=== PATIENT | female | born 1975 | race Caucasian/White ===

== ENCOUNTER 2021-07-24 20:43 | Emergency (ER) | payer OTHER, SELFPAY ==
[2021-07-24] VITALS (9 sets, daily range): BP systolic 106–139; BP diastolic 61–82; PULSE 73–113; RESP 15–31; TEMP 37.1–37.3; O2SAT 96–100; BMI 33.9
--- NOTE | 2021-07-24 21:25 | DI.CT.S_ITS ---
PROCEDURE: CT ABDOMEN PELVIS W CON INDICATIONS: Left-sided abdominal pain TECHNIQUE: After the administration of intravenous contrast, axial sections acquired from the lung bases to the pubic symphysis. Coronal and sagittal reformats were performed. For radiation dose reduction, the following was used: automated exposure control, adjustment of mA and/or kV according to patient size. COMPARISON: None. FINDINGS: Image quality: Excellent. Lung bases: Unremarkable. Heart: No significant findings. ABDOMEN: Liver: Unremarkable. Gallbladder: Demonstrates multiple calculi within its lumen Biliary ducts: Unremarkable. Pancreas: Unremarkable. Spleen: Unremarkable. Adrenal Glands: Unremarkable. Kidneys and Ureters: Right kidney is within normal limits. Mild left renal enlargement. Multifocal wedge-shaped hypodense regions within the left renal parenchyma. Mild left perinephric fat stranding. Stomach and Bowel: Stomach, small bowel loops, and colon are unremarkable. Appendix not seen. No evidence of appendicitis. Peritoneum: No abnormal intraperitoneal fluid. No free air. Ventral Wall: No hernias. Abdominal Nodes: No retroperitoneal or mesenteric adenopathy by size criteria. Vessels: Aorta and inferior vena cava are normal in size. PELVIS: Pelvic Organs: Unremarkable. Bladder: Unremarkable. Pelvic Nodes: No enlarged lymph nodes. Miscellaneous: No hernias are seen. Bones: Unremarkable. IMPRESSION: 1. Findings suggestive of left-sided pyelonephritis. Confirmation with urinalysis recommended. 2. Appendix not seen. No evidence of appendicitis. 3. Cholelithiasis. No evidence of cholecystitis. Dictated by: Lissa Verde M.D. on 07/24/2021 at 22:25 Approved by: Lissa Verde M.D. on 07/24/2021 at 22:26
--- NOTE | 2021-07-24 21:25 | ED_ITS ---
HPI - General Adult General Chief complaint: Abdominal Pain Stated complaint: abd pain, hx of diverticulitis Time Seen by Provider: 07/24/21 21:10 Source: patient Mode of arrival: Ambulatory History of Present Illness HPI narrative: 45-year-old female who is here for evaluation of left-sided abdominal pain. Fevers. Nausea. Fatigue. Generally feeling very poorly. This has been going on for the past several days. Does have a history of diverticulitis but she states that this does feel exactly like prior diagnosis of this. Has had a hysterectomy with subsequent hernia and mesh placement. She denies any urinary symptoms. No change in bowel habits. No skin changes. Has not been evaluated for her symptoms prior to this. Related Data Previous Rx's Medication Instructions Recorded ciprofloxacin HCl 500 mg tablet 500 mg PO BID 7 Days #14 tab 07/25/21 ondansetron 4 mg disintegrating 4 mg PO Q6H PRN #10 tab 07/25/21 tablet Allergies Allergy/AdvReac Type Severity Reaction Status Date / Time Penicillins Allergy Verified 07/24/21 22:15 acetaminophen [From Vicodin] AdvReac Vomiting Verified 07/24/21 22:15 hydrocodone [From Vicodin] AdvReac Vomiting Verified 07/24/21 22:15 oxycodone [From Percocet] AdvReac Vomiting Verified 07/24/21 22:15 Review of Systems Review of Systems ROS Unobtainable: All systems reviewed & are unremarkable except as noted in HPI and below Patient History Medical History Diverticulitis Social History marital status: Exam Initial Vital Signs Initial Vital Signs: Vital Signs Temperature 98.8 F 07/24/21 20:55 Pulse Rate 113 H 07/24/21 20:55 Respiratory Rate 22 07/24/21 20:55 Blood Pressure 125/75 07/24/21 20:55 Pulse Oximetry 97 07/24/21 20:55 Const General: cooperative HENMT Head: normal to inspection and normocephalic Resp Effort & Inspection: normal respiratory effort Auscultation: clear to auscultation bilaterally Cardio Rate: regular rate Rhythm: regular rhythm GI Inspection: normal to inspection Palpation: soft and tender (The side abdomen, left CVA) Skin General: no rashes or lesions noted Neuro General: patient alert, patient awake, patient oriented x3 and moves all extremi ties Extrem General: normal to inspection and capillary refill normal Psych Appearance: grossly normal and well kempt Course Orders Ordered: ED Orders 07/24/21 21:25 CT abdomen pelvis w con Stat 07/24/21 21:35 Complete Blood Count AUTO DIFF Stat Comprehensive Metabolic Panel Stat Lactate (Lactic Acid) Stat Lipase Stat 07/24/21 23:14 Urine Culture Stat Urine Microscopic Stat Discontinued Medications Ciprofloxacin (Ciprofloxacin 250 Mg Tablet) 500 mg PO NOW ONE Stop: 07/24/21 23:10 Last Admin: 07/24/21 23:23 Dose: 500 mg Documented by: RAMIN Sodium Chloride (Normal Saline 0.9%) 1,000 mls @ 1,000 mls/hr IV BOLUS ONE Stop: 07/24/21 22:10 Last Infusion: 07/24/21 22:55 Dose: 0 mls/hr Documented by: Admin: 07/24/21 21:34 Dose: 1,000 mls/hr Documented by: NIKKO Ondansetron HCl (Ondansetron 4 Mg/2 Ml Inj) 4 mg IV NOW ONE Stop: 07/24/21 21:15 Last Admin: 07/24/21 21:34 Dose: 4 mg Documented by: NIKKO Ondansetron HCl (Ondansetron 4 Mg Odt Prepack) 1 bottle MISC SEEINSTR ONE Stop: 07/25/21 00:11 Vital Signs Vital signs: Vital Signs - 8 hr 07/24/21 20:55 07/24/21 21:08 07/24/21 21:09 Temperature 98.8 F 99.1 F Pulse Rate 113 H 94 H 93 H Respiratory Rate 22 19 17 Blood Pressure 125/75 121/67 Pulse Oximetry 97 96 96 07/24/21 21:30 07/24/21 21:41 07/24/21 22:00 Temperature Pulse Rate 90 86 78 Respiratory Rate 22 31 H 18 Blood Pressure 125/67 113/65 Pulse Oximetry 96 97 97 07/24/21 22:14 07/24/21 22:30 07/24/21 22:31 Temperature Pulse Rate 80 75 73 Respiratory Rate 17 19 15 Blood Pressure 139/82 106/61 Pulse Oximetry 100 98 99 07/25/21 00:23 Temperature Pulse Rate 70 Respiratory Rate 16 Blood Pressure 110/72 Pulse Oximetry 100 Medical Decision Making Lab Data Lab results reviewed: Yes I reviewed the patient's lab results. Result diagrams: 07/24/21 21:35 07/24/21 21:35 Labs: Lab Results 07/24/21 07/24/21 07/24/21 Range/Units 21:35 21:35 21:35 WBC 11.1 H (4.5-11.0) X10^3/uL RBC 4.09 (4.0-5.2) X10^6/uL Hgb 11.2 L (12.0-16.0) g/dL Hct 34.5 L (36-46) % MCV 84.2 (80-100) fL MCH 27.5 (26-34) PG MCHC 32.6 (30-36) % RDW 15.4 H (11.6-14.8) % Plt Count 274 (150-400) X10^3/uL Neut % (Auto) 81.6 H (50-75) % Lymph % (Auto) 5.5 L (25-40) % Piatt % (Auto) 12.5 (3-14) % Eos % (Auto) 0.1 L (2-4) % Baso % (Auto) 0.3 (0-2) % Neut # (Auto) 9100 H (0441-9799) /uL Lymph # (Auto) 600 L (0807-3223) /uL Piatt # (Auto) 1400 H (0-900) /uL Eos # (Auto) 0 (0-450) /uL Baso # (Auto) 0 (0-100) /uL Sodium 138 (137-145) mmol/L Potassium 3.5 (3.4-5.1) mmol/L Chloride 107 (98-107) mmol/L Carbon Dioxide 23 (22-32) mmol/L BUN 18 H (7-17) mg/dL Creatinine 1.19 H (0.52-1.04) mg/dL Estimated GFR 48.8 L (>60) mL/min BUN/Creatinine Ratio 15.1 (6-22) Glucose 130 H (70-100) mg/dL Lactate 0.6 L (0.7-2.1) mmol/L Calcium 9.4 (8.4-10.2) mg/dL Total Bilirubin 0.6 (0.2-1.3) mg/dL AST 20 (14-36) IU/L ALT 22 (<35) IU/L Alkaline Phosphatase 71 (38-126) U/L Total Protein 7.9 (6.3-8.2) g/dL Albumin 4.0 (3.5-5.0) g/dL Globulin 3.9 (1.7-4.1) g/dL Albumin/Globulin Ratio 1.0 (1.0-2.8) Lipase 18 L (23-300) U/L Urine RBC (0-5/HPF) Urine WBC (0-5/HPF) Ur Squamous Epith Cells (0-5/HPF) Urine Bacteria (None) Ur Culture Indicated? Micro UA Comment 07/24/21 Range/Units 23:14 WBC (4.5-11.0) X10^3/uL RBC (4.0-5.2) X10^6/uL Hgb (12.0-16.0) g/dL Hct (36-46) % MCV (80-100) fL MCH (26-34) PG MCHC (30-36) % RDW (11.6-14.8) % Plt Count (150-400) X10^3/uL Neut % (Auto) (50-75) % Lymph % (Auto) (25-40) % Piatt % (Auto) (3-14) % Eos % (Auto) (2-4) % Baso % (Auto) (0-2) % Neut # (Auto) (7440-6658) /uL Lymph # (Auto) (8243-8165) /uL Piatt # (Auto) (0-900) /uL Eos # (Auto) (0-450) /uL Baso # (Auto) (0-100) /uL Sodium (137-145) mmol/L Potassium (3.4-5.1) mmol/L Chloride (98-107) mmol/L Carbon Dioxide (22-32) mmol/L BUN (7-17) mg/dL Creatinine (0.52-1.04) mg/dL Estimated GFR (>60) mL/min BUN/Creatinine Ratio (6-22) Glucose (70-100) mg/dL Lactate (0.7-2.1) mmol/L Calcium (8.4-10.2) mg/dL Total Bilirubin (0.2-1.3) mg/dL AST (14-36) IU/L ALT (<35) IU/L Alkaline Phosphatase (38-126) U/L Total Protein (6.3-8.2) g/dL Albumin (3.5-5.0) g/dL Globulin (1.7-4.1) g/dL Albumin/Globulin Ratio (1.0-2.8) Lipase (23-300) U/L Urine RBC 0-1/hpf (0-5/HPF) Urine WBC 10-30/hpf H (0-5/HPF) Ur Squamous Epith Cells None seen (0-5/HPF) Urine Bacteria Many (>30) H (None) Ur Culture Indicated? Culture not indicate Micro UA Comment * Point of Care Testing Test Results Negative Urine Dip Bedside Urine Glucose Negative Bedside Urine Bilirubin - Negative Bedside Urine Ketone - Negative Urine Specific [place] 1.010 Bedside Urine Occult Blood + Bedside Urine pH 6.0 Bedside Urine Protein + 30 Bedside Urine Urobilinogen +/- 1mg Bedside Urine Nitrite + Positive Bedside Urine Leukocytes - Negative Esterase Point of care testing: Point of Care Testing Test Results Negative Urine Dip Bedside Urine Glucose Negative Bedside Urine Bilirubin - Negative Bedside Urine Ketone - Negative Urine Specific [place] 1.010 Bedside Urine Occult Blood + Bedside Urine pH 6.0 Bedside Urine Protein + 30 Bedside Urine Urobilinogen +/- 1mg Bedside Urine Nitrite + Positive Bedside Urine Leukocytes - Negative Esterase Imaging Data CT scan - abdomen/pelvis: Radiologist's Impression: [place] [address] CT Scan Report Signed Patient: Ida Villalobos MR#: [id number] : 1975 Acct:[id number] Age/Sex: 45 / F Date of Service: 07/24/21 Loc: ED Accession Number: [id number] ?? Procedure: CT abdomen pelvis w con Ordering Provider: Del Frias D.O. PROCEDURE:? CT ABDOMEN PELVIS W CON ? INDICATIONS:? Left-sided abdominal pain ? TECHNIQUE:? After the administration of intravenous contrast, axial sections acquired from the lung bases to the pubic symphysis.? Coronal and sagittal reformats were performed.? For radiation dose reduction, the following was used:? automated exposure control, adjustment of mA and/or kV according to patient size.? ? COMPARISON:? None. ? FINDINGS:? Image quality:? Excellent.? ? Lung bases:? Unremarkable. Heart:? No significant findings. ? ABDOMEN: Liver:? Unremarkable.? ? Gallbladder:? Demonstrates multiple calculi within its lumen? ? Biliary ducts:? Unremarkable.? ? Pancreas:? Unremarkable.? ? Spleen:? Unremarkable.? ? Adrenal Glands:? Unremarkable.? ? Kidneys and Ureters:? Right kidney is within normal limits.? Mild left renal enlargement. ?Multifocal wedge-shaped hypodense regions within the left renal parenchyma.? Mild left perinephric fat stranding. ? Stomach and Bowel:? Stomach, small bowel loops, and colon are unremarkable.? Appendix not seen.? No evidence of appendicitis. Peritoneum:? No abnormal intraperitoneal fluid.? No free air.? ? Ventral Wall: ? No hernias.? Abdominal Nodes:? No retroperitoneal or mesenteric adenopathy by size criteria.? Vessels:? Aorta and inferior vena cava are normal in size.? ? PELVIS: Pelvic Organs:? Unremarkable.? ? Bladder:? Unremarkable.? ? Pelvic Nodes: No enlarged lymph nodes.? Miscellaneous: No hernias are seen. ? ? ? Bones:? Unremarkable.? IMPRESSION:? 1. Findings suggestive of left-sided pyelonephritis.? Confirmation with urin alysis recommended. 2. Appendix not seen.? No evidence of appendicitis. 3. Cholelithiasis.? No evidence of cholecystitis. ? ? Dictated by: Lissa Verde M.D. on 07/24/2021 at 22:25 ? ? Approved by: Lissa Verde M.D. on 07/24/2021 at 22:26?? [facility] Narrative Medical decision making narrative: CT scan does not show signs of diverticulitis but does who signs of pyelonephritis on the left. She does have a nitrite positive urine. Rest of her labs are relatively unremarkable. I did discuss with her the findings of the labs and the CT scan. She states that Sepideh has worked for her in the past with regard to prior infections. She was given a dose here in the ER and she was able to tolerate without vomiting. We did discuss pyelonephritis and the potential for becoming ill because of this. The feel that a trial of home oral antibiotics is warranted given her presentation. She was however given very strict return precautions. Antibiotics for electronically transmitted to the pharmacy of her choice. She expressed understanding and agreement. Discharge Plan Departure Patient Disposition: Home Clinical Impression: Pyelonephritis Instructions: DI for Kidney Infection Activity Restrictions/Additional Instructions: The CT scan and your labs today are consistent with a kidney infection. You were given a 1st dose of antibiotics here in the emergency department in your next dose will be tomorrow morning. Use the nausea medication is needed. You can take Tylenol for any fevers or body aches. Contact your primary doctor for a follow-up. Return to the emergency department for any new or worsening symptoms. Prescriptions: New ciprofloxacin HCl 500 mg tablet 500 mg PO BID 7 Days Qty: 14 0RF ondansetron 4 mg tablet,disintegrating 4 mg PO Q6H PRN (Reason: nausea and vomiting) Qty: 10 0RF
[2021-07-24] MEDS: SODIUM CHLORIDE 0.9% 1,000 ML 1000 ML IV (21:34)
[2021-07-24] MEDS: ONDANSETRON 4 MG/2 ML INJ IV (21:34)
[2021-07-24 21:44] LABS: Add Manual Diff / Slide Review NO; Basophils Absolute Auto 0 /uL (0-100); Basophils Percent Auto 0.3 % (0-2); Eosinophils Absolute Auto 0 /uL (0-450); Eosinophils Percent Auto 0.1 % (2-4); Hematocrit 34.5 % (36-46); Hemoglobin 11.2 g/dL (12.0-16.0); Lymphocytes Absolute Auto 600 /uL (1100-4500); Lymphocytes Percent Auto 5.5 % (25-40); Mean Corpuscular HGB Conc 32.6 % (30-36); Mean Corpuscular Hemoglobin 27.5 PG (26-34); Mean Corpuscular Volume 84.2 fL (80-100); Monocytes Absolute Auto 1400 /uL (0-900); Monocytes Percent Auto 12.5 % (3-14); Neutrophils Absolute Auto 9100 /uL (1500-7000); Neutrophils Percent Auto 81.6 % (50-75); Platelet Count 274 X10^3/uL (150-400); Red Blood Cell Count 4.09 X10^6/uL (4.0-5.2); Red Cell Distribution Width 15.4 % (11.6-14.8); White Blood Cell Count 11.1 X10^3/uL (4.5-11.0)
[2021-07-24 21:53] LABS: Lactate (Lactic Acid) 0.6 mmol/L (0.7-2.1)
[2021-07-24 21:54] LABS: Alanine Aminotransferase 22 IU/L (<35); Alkaline Phosphatase 71 U/L (38-126); Aspartate Aminotransferase 20 IU/L (14-36); BUN Creatinine Ratio 15.1 (6-22); Bilirubin Total 0.6 mg/dL (0.2-1.3); Blood Urea Nitrogen 18 mg/dL (7-17); Calcium 9.4 mg/dL (8.4-10.2); Carbon Dioxide 23 mmol/L (22-32); Chloride 107 mmol/L (98-107); Estimated Glomerular Filt Rate 48.8 mL/min (>60); Globulin 3.9 g/dL (1.7-4.1); Glucose 130 mg/dL (70-100); HEMOLYSIS < 15 (0-50); Lipase 18 U/L (23-300); Potassium 3.5 mmol/L (3.4-5.1); Sodium 138 mmol/L (137-145); Total Protein 7.9 g/dL (6.3-8.2)
[2021-07-24] MEDS: CIPROFLOXACIN 250 MG TABLET 500 MG PO (23:23)
[2021-07-24 23:56] LABS: Bacteria Urine Many (>30); WBC Urine 10-30/HPF (0-5/HPF)
[2021-07-24 23:57] LABS: Squamous Epithelial Cell Urine None Seen (0-5/HPF)
[2021-07-25] LABS: RBC Urine 0-1/HPF (0-5/HPF)
[2021-07-25 00:23] VITALS: BP 110/72; PULSE 70; RESP 16; O2SAT 100
== END 2021-07-25 00:23 | disposition home or self-care (01) ==
PROVIDERS: Emergency Provider Emergency Medicine
DX: N12 Tubulo-interstitial nephritis, not specified as acute or chronic (principal)
CPT/HCPCS: 36415; 74177; 80053; 81003; 81015; 81025; 83605; 83690; 85025; 87077; 87086; 87186; 96361; 96374; 99284; 99285; J2405; Q9967

== ENCOUNTER 2021-12-21 12:19 | Emergency (ER) | payer OTHER, SELFPAY ==
[2021-12-21] VITALS (9 sets, daily range): BP systolic 102–139; BP diastolic 57–84; PULSE 52–64; RESP 12–17; TEMP 36.7; O2SAT 98–100; BMI 34.3
[2021-12-21] MEDS: ONDANSETRON 4 MG/2 ML INJ IV (14:00)
[2021-12-21] MEDS: SODIUM CHLORIDE 0.9% 1,000 ML 1000 ML IV (14:01)
[2021-12-21 14:10] LABS: Add Manual Diff / Slide Review NO; Basophils Absolute Auto 100 /uL (0-100); Eosinophils Absolute Auto 100 /uL (0-450); Eosinophils Percent Auto 0.8 % (2-4); Hematocrit 36.5 % (36-46); Hemoglobin 12.3 g/dL (12.0-16.0); Lymphocytes Absolute Auto 1000 /uL (1100-4500); Lymphocytes Percent Auto 16.8 % (25-40); Mean Corpuscular HGB Conc 33.7 % (30-36); Mean Corpuscular Volume 83.2 fL (80-100); Monocytes Absolute Auto 300 /uL (0-900); Monocytes Percent Auto 5.6 % (3-14); Neutrophils Absolute Auto 4700 /uL (1500-7000); Neutrophils Percent Auto 75.8 % (50-75); Platelet Count 337 X10^3/uL (150-400); Red Blood Cell Count 4.39 X10^6/uL (4.0-5.2); Red Cell Distribution Width 14.5 % (11.6-14.8); White Blood Cell Count 6.2 X10^3/uL (4.5-11.0)
[2021-12-21 14:27] LABS: Alanine Aminotransferase 17 IU/L (<35); Albumin 4.4 g/dL (3.5-5.0); Albumin Globulin Ratio 1.2 (1.0-2.8); Alkaline Phosphatase 55 U/L (38-126); Aspartate Aminotransferase 20 IU/L (14-36); BUN Creatinine Ratio 20.8 (6-22); Bilirubin Total 0.3 mg/dL (0.2-1.3); Blood Urea Nitrogen 16 mg/dL (7-17); Calcium 9.3 mg/dL (8.4-10.2); Carbon Dioxide 27 mmol/L (22-32); Chloride 107 mmol/L (98-107); Estimated Glomerular Filt Rate > 60 mL/min (>60); Globulin 3.6 g/dL (1.7-4.1); Glucose 108 mg/dL (70-100); HEMOLYSIS < 15 (0-50); Lipase 29 U/L (23-300); Potassium 4.1 mmol/L (3.4-5.1); Sodium 143 mmol/L (137-145)
--- NOTE | 2021-12-21 14:29 | DI.CT.S_ITS ---
PROCEDURE: CT ABDOMEN PELVIS W CON INDICATIONS: history of diverticulitis, c/f perforation? TECHNIQUE: After the administration of oral and IV contrast, axial sections were acquired from the lung bases to the pubic symphysis. Coronal and sagittal reformats were performed. For radiation dose reduction, the following was used: automated exposure control, adjustment of mA and/or kV according to patient size. COMPARISON: [facility], CT, CT ABDOMEN PELVIS W CON, 07/24/2021, 21:53. FINDINGS: Image quality: Excellent. Lung bases: Unremarkable. Small hiatal hernia. Heart: No significant findings. ABDOMEN: Liver: Normal size. Mild hepatic steatosis. Gallbladder: Multiple gallstones. No gallbladder wall thickening or pericholecystic fluid collection Biliary ducts: Unremarkable. Pancreas: Unremarkable. Spleen: Unremarkable. Adrenal Glands: Unremarkable. Kidneys and Ureters: Normal size and enhancement. Suspect small 1-2 mm left renal stones. There is left renal cortical scars. Stomach and Bowel: Stomach, small bowel loops, and colon are normal in caliber. There are numerous colonic diverticula. There is focal thickening and pericolonic stranding in the proximal descending sigmoid colon, consistent with acute diverticulitis. Peritoneum: There is a complex fluid collection in the left pericolic gutter. No organized, drainable rim-enhancing fluid collections to suggest diverticular abscess. No free air. Ventral Wall: No hernia. Abdominal Nodes: No retroperitoneal or mesenteric adenopathy by size criteria. Vessels: Aorta and inferior vena cava are normal in size. PELVIS: Pelvic Organs: Unremarkable. Bladder: Unremarkable. Pelvic Nodes: No enlarged lymph nodes. Miscellaneous: No inguinal hernias are seen. Bones: Unremarkable. IMPRESSION: 1. The CT findings are consistent with acute diverticulitis involving the proximal sigmoid colon. There is a small amount of complex free fluid in the left pericolic gutter. No drainable, rim enhancing fluid collections to suggest abscess. After adequate treatment of acute illness, please consider colonoscopy as colon cancer could have a similar imaging appearance on CT. 2. Cholelithiasis. 3. Hepatic steatosis. Dictated by: Enrike Morejon M.D. on 12/21/2021 at 16:13 Approved by: Enrike Morjeon M.D. on 12/21/2021 at 16:20
[2021-12-21] MEDS: hydrOXYzine pamoate 25 MG CAPSULE PO (14:35)
[2021-12-21] MEDS: KETOROLAC 30 MG/ML VIAL 15 MG IV (14:36)
--- NOTE | 2021-12-21 15:01 | ED.NAVMDI ---
HPI - Nausea/Vomiting/Diarrhea <TAMIA BallP - Last Filed: 12/21/21 18:17> General Chief complaint: Nausea/Vomiting/Diarrhea Stated complaint: Diverticulitis Time Seen by Provider: 12/21/21 13:43 Source: patient Mode of arrival: Family Vehicle History of Present Illness HPI Narrative: This is a 46-year-old female who presents to the emergency department with concern about her left lower quadrant pain which became significantly worse last night. Patient has a history of diverticulitis and has been on Flagyl and Levaquin for two days and prescribed from her primary care provider. Patient reports that she significant nausea vomiting and diarrhea since starting the antibiotics, she is having minimal relief from her Zofran, states that her pain became severe five days ago with concern for bowel perforation. She states that she is had diverticulitis issues for at least 20 years. She states her pain regimen is best treated at home with ibuprofen and Tylenol. She is requesting CT imaging due to the limited services available at [facility] and concern for bowel perforation. She denies any fever, blood in her stool or her emesis, denies any diffuse pain across her whole abdomen. States that her pain is primarily in the lower left quadrant and it has improved since starting the antibiotics. Related Data Previous Rx's Medication Instructions Recorded ondansetron 4 mg disintegrating 4 mg PO Q6H PRN nausea and 07/25/21 tablet vomiting #10 tabs amoxicillin 875 mg-potassium 1 tab PO BID diverticulitis 7 days 12/21/21 clavulanate 125 mg tablet #14 tabs hydroxyzine HCl 25 mg tablet 25 mg PO BID PRN anxiety #20 tabs 12/21/21 hydroxyzine HCl 25 mg tablet 25 mg PO BID PRN anxiety #20 tabs 12/21/21 ondansetron 4 mg disintegrating 4 mg PO Q8H PRN nausea and 12/21/21 tablet vomiting #14 tabs ondansetron 4 mg disintegrating 4 mg PO Q8H PRN nausea and 12/21/21 tablet vomiting #14 tabs promethazine 12.5 mg rectal 12.5 mg KY TID #12 ea 12/21/21 suppository promethazine 12.5 mg rectal 12.5 mg KY TID PRN vomiting #12 ea 12/21/21 suppository promethazine 25 mg rectal 25 mg KY Q6H PRN nausea and 12/21/21 suppository vomiting #12 ea Allergies Allergy/AdvReac Type Severity Reaction Status Date / Time Penicillins Allergy Verified 07/24/21 22:15 acetaminophen [From Vicodin] AdvReac Vomiting Verified 07/24/21 22:15 hydrocodone [From Vicodin] AdvReac Vomiting Verified 07/24/21 22:15 morphine AdvReac Hives Verified 12/21/21 12:47 oxycodone [From Percocet] AdvReac Vomiting Verified 07/24/21 22:15 Review of Systems <AARTI Ball - Last Filed: 12/21/21 18:17> Review of Systems Narrative: General: denies fever, chills, malaise, sweats, fatigue Head/Neck: denies headache, neck pain, dizziness Eyes: denies visual changes, eye pain Cardio: denies chest pain, palpitations, edema Respiratory: denies dyspnea, cough, orthopnea GI: Endorses left lower quadrant abdominal pain with nausea, vomiting, and diarrhea : denies dysuria, hematuria, urinary retention, frequency or incontinence MSK: denies joint pain, muscle weakness Skin: denies rash, itching, skin lesions or other Neuro: denies numbness, tingling Patient History <AARTI Ball - Last Filed: 12/21/21 18:17> Medical History Diverticulitis Social History marital status: Smoking Status: Never smoker Smoking Status: Never smoker alcohol intake frequency: holidays/special occasions only Substance Use Type: does not use Exam <AARTI Ball - Last Filed: 12/21/21 18:17> Narrative Exam Narrative: Independently reviewed vitals signs and nursing notes. General: cooperative, comfortable, in no acute distress, well groomed Head: atraumatic, symmetrical facial expressions Neck: supple Eyes: equal round and reactive, EOMI, conjunctiva normal Nose: nares patent, no rhinorrhea Mouth/Throat: moist mucus membranes Cardiovascular: regular rate and rhythm, no peripheral edema, warm extremities Respiratory: normal effort, able to speak in complete sentences, no audible wheezing, stridor, or rales. No retractions or tachypnea. GI: abdomen soft, tender to palpation in the lower left quadrant near her groin, nondistended, no masses, no exquisite tenderness with exam, without guarding or rebound. No CVA tenderness MSK: moves all extremities, neurovascularly intact, no weakness, normal tone Skin: brisk capillary refill, no rash, no erythema Neuro: normal speech and cognition, A&O x3 Psych: mental status is grossly normal, congruent mood, normal affect, pleasant and cooperative Initial Vital Signs Initial Vital Signs: Vital Signs Temperature 98.1 F 12/21/21 12:42 Pulse Rate 60 12/21/21 12:42 Respiratory Rate 12 12/21/21 12:42 Blood Pressure 139/84 12/21/21 12:42 Pulse Oximetry 100 12/21/21 12:42 Oxygen Delivery Method 12/21/21 12:42 <Melanie Alegre DO - Last Filed: 12/27/21 21:48> Initial Vital Signs Initial Vital Signs: Vital Signs Temperature 98.1 F 12/21/21 12:42 Pulse Rate 60 12/21/21 12:42 Respiratory Rate 12 12/21/21 12:42 Blood Pressure 139/84 12/21/21 12:42 Pulse Oximetry 100 12/21/21 12:42 Oxygen Delivery Method 12/21/21 12:42 Course <AARTI Ball - Last Filed: 12/21/21 18:17> Orders Ordered: Discontinued Medications Amoxicillin/Clavulanate Potassium (Amoxicillin/Clav 875/125 Mg) 1 tab PO NOW ONE Stop: 12/21/21 16:49 Last Admin: 12/21/21 16:52 Dose: 1 tab Documented By: MICAH Hydroxyzine Pamoate (Hydroxyzine Pamoate 25 Mg Capsule) 25 mg PO NOW ONE Stop: 12/21/21 14:30 Last Admin: 12/21/21 14:35 Dose: 25 mg Documented By: MICAH Sodium Chloride (Normal Saline 0.9%) 1,000 mls @ 1,000 mls/hr IV BOLUS ONE Stop: 12/21/21 14:43 Last Infusion: 12/21/21 16:21 Dose: 0 mls/hr Documented By: Admin: 12/21/21 14:01 Dose: 1,000 mls/hr Documented By: MICAH Ketorolac Tromethamine (Ketorolac 30 Mg/Ml Vial) 15 mg IV NOW ONE Stop: 12/21/21 14:30 Last Admin: 12/21/21 14:36 Dose: 15 mg Documented By: MICAH Ondansetron HCl (Ondansetron 4 Mg/2 Ml Inj) 4 mg IV NOW ONE Stop: 12/21/21 13:45 Last Admin: 12/21/21 14:00 Dose: 4 mg Documented By: MICAH Vital Signs Vital signs: Vital Signs - 8 hr 12/21/21 12:42 12/21/21 13:34 12/21/21 13:34 Temperature 98.1 F Pulse Rate 60 Respiratory Rate 12 Blood Pressure 139/84 115/75 Pulse Oximetry 100 98 Oxygen Delivery Method Room Air 12/21/21 14:00 12/21/21 14:00 12/21/21 14:30 Temperature Pulse Rate Respiratory Rate Blood Pressure 113/68 106/72 Pulse Oximetry 98 Oxygen Delivery Method 12/21/21 14:30 12/21/21 15:00 12/21/21 15:00 Temperature Pulse Rate 56 L 64 Respiratory Rate Blood Pressure 102/57 L Pulse Oximetry 99 99 Oxygen Delivery Method 12/21/21 15:30 12/21/21 16:00 12/21/21 16:30 Temperature Pulse Rate 52 L 56 L 55 L Respiratory Rate Blood Pressure Pulse Oximetry 100 99 100 Oxygen Delivery Method Room Air 12/21/21 17:23 Temperature Pulse Rate 56 L Respiratory Rate 17 Blood Pressure 108/76 Pulse Oximetry 99 Oxygen Delivery Method Room Air <Melanie Alegre, - Last Filed: 12/27/21 21:48> Orders Ordered: Discontinued Medications Amoxicillin/Clavulanate Potassium (Amoxicillin/Clav 875/125 Mg) 1 tab PO NOW ONE Stop: 12/21/21 16:49 Last Admin: 12/21/21 16:52 Dose: 1 tab Documented By: MICAH Hydroxyzine Pamoate (Hydroxyzine Pamoate 25 Mg Capsule) 25 mg PO NOW ONE Stop: 12/21/21 14:30 Last Admin: 12/21/21 14:35 Dose: 25 mg Documented By: MICAH Sodium Chloride (Normal Saline 0.9%) 1,000 mls @ 1,000 mls/hr IV BOLUS ONE Stop: 12/21/21 14:43 Last Infusion: 12/21/21 16:21 Dose: 0 mls/hr Documented By: Admin: 12/21/21 14:01 Dose: 1,000 mls/hr Documented By: MICAH Ketorolac Tromethamine (Ketorolac 30 Mg/Ml Vial) 15 mg IV NOW ONE Stop: 12/21/21 14:30 Last Admin: 12/21/21 14:36 Dose: 15 mg Documented By: MICAH Ondansetron HCl (Ondansetron 4 Mg/2 Ml Inj) 4 mg IV NOW ONE Stop: 12/21/21 13:45 Last Admin: 12/21/21 14:00 Dose: 4 mg Documented By: MICAH Vital Signs Vital signs: Vital Signs - 8 hr 12/21/21 12:42 12/21/21 13:34 12/21/21 13:34 Temperature 98.1 F Pulse Rate 60 Respiratory Rate 12 Blood Pressure 139/84 115/75 Pulse Oximetry 100 98 Oxygen Delivery Method Room Air 12/21/21 14:00 12/21/21 14:00 12/21/21 14:30 Temperature Pulse Rate Respiratory Rate Blood Pressure 113/68 106/72 Pulse Oximetry 98 Oxygen Delivery Method 12/21/21 14:30 12/21/21 15:00 12/21/21 15:00 Temperature Pulse Rate 56 L 64 Respiratory Rate Blood Pressure 102/57 L Pulse Oximetry 99 99 Oxygen Delivery Method 12/21/21 15:30 12/21/21 16:00 12/21/21 16:30 Temperature Pulse Rate 52 L 56 L 55 L Respiratory Rate Blood Pressure Pulse Oximetry 100 99 100 Oxygen Delivery Method Room Air 12/21/21 17:23 Temperature Pulse Rate 56 L Respiratory Rate 17 Blood Pressure 108/76 Pulse Oximetry 99 Oxygen Delivery Method Room Air MDM - Nausea/Vomiting/Diarrhea <AARTI Ball - Last Filed: 12/21/21 18:17> Lab Data Result diagrams: 12/21/21 13:55 12/21/21 13:55 Labs: Lab Results 12/21/21 12/21/21 12/21/21 Range/Units 13:55 13:55 15:50 WBC 6.2 (4.5-11.0) X10^3/uL RBC 4.39 (4.0-5.2) X10^6/uL Hgb 12.3 (12.0-16.0) g/dL Hct 36.5 (36-46) % MCV 83.2 (80-100) fL MCH 28.0 (26-34) PG MCHC 33.7 (30-36) % RDW 14.5 (11.6-14.8) % Plt Count 337 (150-400) X10^3/uL Neut % (Auto) 75.8 H (50-75) % Lymph % (Auto) 16.8 L (25-40) % [place] % (Auto) 5.6 (3-14) % Eos % (Auto) 0.8 L (2-4) % Baso % (Auto) 1.0 (0-2) % Neut # (Auto) 4700 (0407-1559) /uL Lymph # (Auto) 1000 L (0332-8527) /uL [place] # (Auto) 300 (0-900) /uL Eos # (Auto) 100 (0-450) /uL Baso # (Auto) 100 (0-100) /uL Sodium 143 (137-145) mmol/L Potassium 4.1 (3.4-5.1) mmol/L Chloride 107 (98-107) mmol/L Carbon Dioxide 27 (22-32) mmol/L BUN 16 (7-17) mg/dL Creatinine 0.77 (0.52-1.04) mg/dL Estimated GFR > 60 (>60) mL/min BUN/Creatinine Ratio 20.8 (6-22) Glucose 108 H (70-100) mg/dL Calcium 9.3 (8.4-10.2) mg/dL Total Bilirubin 0.3 (0.2-1.3) mg/dL AST 20 (14-36) IU/L ALT 17 (<35) IU/L Alkaline Phosphatase 55 (38-126) U/L Total Protein 8.0 (6.3-8.2) g/dL Albumin 4.4 (3.5-5.0) g/dL Globulin 3.6 (1.7-4.1) g/dL Albumin/Globulin Ratio 1.2 (1.0-2.8) Lipase 29 (23-300) U/L Urine RBC 0-1/hpf (0-5/HPF) Urine WBC 0-1/hpf (0-5/HPF) Ur Squamous Epith Cells 0-1 /hpf (0-5/HPF) Urine Bacteria Occasional (0-1) (None) Ur Culture Indicated? Cult not indicated Point of Care Testing Test Results Negative Urine Dip Bedside Urine Glucose Negative Bedside Urine Bilirubin - Negative Bedside Urine Ketone - Negative Urine Specific [place] 1.020 Bedside Urine Occult Blood - Negative Bedside Urine pH 5.5 Bedside Urine Protein - Negative Bedside Urine Urobilinogen - Negative Bedside Urine Nitrite - Negative Bedside Urine Leukocytes - Negative Esterase Imaging Data CT scan - abdomen/pelvis: Radiologist's Impression: PROCEDURE:? CT ABDOMEN PELVIS W CON ? INDICATIONS:? history of diverticulitis, c/f perforation? ? TECHNIQUE:? After the administration of oral and IV contrast, axial sections were acquired from the lung bases to the pubic symphysis.? Coronal and sagittal reformats were performed.? For radiation dose reduction, the following was used:? automated exposure control, adjustment of mA and/or kV according to patient size. ? COMPARISON:? [facility], CT, CT ABDOMEN PELVIS W CON, 07/24/2021, 21:53. ? FINDINGS:? Image quality:? Excellent.? ? Lung bases:? Unremarkable.? Small hiatal hernia.? Heart:? No significant findings. ? ? ABDOMEN: Liver:? Normal size.? Mild hepatic steatosis.? ? Gallbladder:? Multiple gallstones.? No gallbladder wall thickening or pericholecystic fluid collection? ? Biliary ducts:? Unremarkable.? ? Pancreas:? Unremarkable.? ? Spleen:? Unremarkable.? ? Adrenal Glands:? Unremarkable.? ? Kidneys and Ureters:? Normal size and enhancement.? Suspect small 1-2 mm left renal stones.? There is left renal cortical scars.? ? ? Stomach and Bowel:? Stomach, small bowel loops, and colon are normal in caliber.? There are numerous colonic diverticula.? There is focal thickening and pericolonic stranding in the proximal descending sigmoid colon, consistent with acute diverticulitis.? Peritoneum:? There is a complex fluid collection in the left pericolic gutter.? No organized, drainable rim-enhancing fluid collections to suggest diverticular abscess.? No free air.? ? Ventral Wall: ? No hernia.? Abdominal Nodes:? No retroperitoneal or mesenteric adenopathy by size criteria.? Vessels:? Aorta and inferior vena cava are normal in size.? ? PELVIS: Pelvic Organs:? Unremarkable.? ? Bladder:? Unremarkable.? ? Pelvic Nodes: No enlarged lymph nodes.? Miscellaneous: No inguinal hernias are seen. ? ? ? Bones:? Unremarkable.? IMPRESSION:? ? 1. The CT findings are consistent with acute diverticulitis involving the proximal sigmoid colon.? There is a small amount of complex free fluid in the left pericolic gutter.? No drainable, rim enhancing fluid collections to suggest abscess.? After adequate treatment of acute illness, please consider colonoscopy as colon cancer could have a similar imaging appearance on CT. ? 2. Cholelithiasis. ? 3. Hepatic steatosis.? ? ? Dictated by: Enrike Morejon M.D. on 12/21/2021 at 16:13 ? ? Approved by: Enrike Morejon M.D. on 12/21/2021 at 16:20 ? MDM Narrative Medical decision making narrative: This is a 46-year-old female with history of diverticulitis over the last 20 years who presents to the emergency department after starting Levaquin and Flagyl two days ago with concern for perforation of her diverticulitis. She requested imaging today [place] and was concerned that there was a perforation. Her lab work does not show any leukocytosis, anemia, no elevation in her liver enzymes, lipase is 29, lactate was not elevated, patient endorses history of significant nausea and vomiting and states that this has been the major problem for her but she has Zofran prescribed to her already at home. Patient had a CT abdomen pelvis with contrast which was significant for acute diverticulitis involving the proximal sigmoid colon, a small amount of complex free fluid in the left pericolic gutter, no drainable or rim enhancing fluid collections to suggest abscess. Cholelithiasis and hepatic steatosis without any enlarged lymph nodes or other remarkable findings. Patient feels much better after treating her nausea was Zofran, IV fluid, hydroxyzine and states that she feels much better from an anxiety standpoint as well on the hydroxyzine. She endorses a history of severe nausea and vomiting related to the Levaquin. She states she has a penicillin allergy listed on her allergies but only had one episode of receiving penicillin in her past and this was an IM injection which she had a well to round and denies any history of hives or ongoing allergies. She was given Augmentin x1 in the emergency department, she did not have any vomiting, hives, any signs of anaphylaxis or angioedema. It is reasonable to consider treating with Augmentin and Flagyl at this point, patient was tolerating p.o. and was prescribed Zofran, promethazine suppositories as needed for vomiting, encouraged to stay hydrated with a clear liquid diet for the next two days while taking Augmentin b.i.d. and Flagyl t.i.d. for the remainder of her course. A consultation with Dr. Khan regarding the free fluid in her abdomen with concern for possible micro perforation or perforation of her sigmoid colon who recommends antibiotics at this point and strict return precautions, he is willing to follow-up with her in the clinic if she gets approval. Patient understands to take her Augmentin and Flagyl until her prescriptions are gone. No peritoneal signs on abdominal exam. Patient remains p.o. tolerant. Serial abdominal exam without increase in abdominal pain. Given history and exam, low suspicion for acute abdominal process, such as acute cholecystitis, pancreatitis, perforated viscus, atypical appendicitis, colitis, or torsion. This is most likely diverticulitis with possible microperforation. Extensive conversation about ER return precautions and need for close follow-up. <Melanie Alegre, DO - Last Filed: 12/27/21 21:48> Lab Data Labs: Lab Results 12/21/21 12/21/21 12/21/21 Range/Units 13:55 13:55 15:50 WBC 6.2 (4.5-11.0) X10^3/uL RBC 4.39 (4.0-5.2) X10^6/uL Hgb 12.3 (12.0-16.0) g/dL Hct 36.5 (36-46) % MCV 83.2 (80-100) fL MCH 28.0 (26-34) PG MCHC 33.7 (30-36) % RDW 14.5 (11.6-14.8) % Plt Count 337 (150-400) X10^3/uL Neut % (Auto) 75.8 H (50-75) % Lymph % (Auto) 16.8 L (25-40) % [place] % (Auto) 5.6 (3-14) % Eos % (Auto) 0.8 L (2-4) % Baso % (Auto) 1.0 (0-2) % Neut # (Auto) 4700 (1133-7387) /uL Lymph # (Auto) 1000 L (7961-2678) /uL [place] # (Auto) 300 (0-900) /uL Eos # (Auto) 100 (0-450) /uL Baso # (Auto) 100 (0-100) /uL Sodium 143 (137-145) mmol/L Potassium 4.1 (3.4-5.1) mmol/L Chloride 107 (98-107) mmol/L Carbon Dioxide 27 (22-32) mmol/L BUN 16 (7-17) mg/dL Creatinine 0.77 (0.52-1.04) mg/dL Estimated GFR > 60 (>60) mL/min BUN/Creatinine Ratio 20.8 (6-22) Glucose 108 H (70-100) mg/dL Calcium 9.3 (8.4-10.2) mg/dL Total Bilirubin 0.3 (0.2-1.3) mg/dL AST 20 (14-36) IU/L ALT 17 (<35) IU/L Alkaline Phosphatase 55 (38-126) U/L Total Protein 8.0 (6.3-8.2) g/dL Albumin 4.4 (3.5-5.0) g/dL Globulin 3.6 (1.7-4.1) g/dL Albumin/Globulin Ratio 1.2 (1.0-2.8) Lipase 29 (23-300) U/L Urine RBC 0-1/hpf (0-5/HPF) Urine WBC 0-1/hpf (0-5/HPF) Ur Squamous Epith Cells 0-1 /hpf (0-5/HPF) Urine Bacteria Occasional (0-1) (None) Ur Culture Indicated? Cult not indicated Point of Care Testing Test Results Negative Urine Dip Bedside Urine Glucose Negative Bedside Urine Bilirubin - Negative Bedside Urine Ketone - Negative Urine Specific [place] 1.020 Bedside Urine Occult Blood - Negative Bedside Urine pH 5.5 Bedside Urine Protein - Negative Bedside Urine Urobilinogen - Negative Bedside Urine Nitrite - Negative Bedside Urine Leukocytes - Negative Esterase Discharge Plan Departure Patient Disposition: Home Clinical Impression: Diverticulitis, Acute vomiting Cholelithiasis Qualifiers: Cholelithiasis location: gallbladder Cholecystitis presence: without cholecystitis Biliary obstruction: without biliary obstruction Qualified Code(s): K80.20 - Calculus of gallbladder without cholecystitis without obstruction Instructions: DI for Diverticulitis Activity Restrictions/Additional Instructions: *You have been diagnosed with diverticulitis of your sigmoid colon. Dr. Khan reviewed your CT scan and thought there is probability there is a microperforation but no need to stay the night in the hospital at this point. He recommends a colonoscopy later and you can follow-up with him in the clinic here after you obtain referral. Please continue taking the Flagyl/metronidazole 3 times a day until it is gone, use Zofran as needed for your nausea vomiting. You can also try hydroxyzine which may help with nausea and anxiety. I have given you seven days of twice a day dosing of Augmentin. Please take this medication and eat food with it and drink water while taking any medications. You can use your ibuprofen and Tylenol for pain, make sure that you eat food with your ibuprofen. Drink plenty of water and I would encourage you to have a clear liquid diet for the next two days to help this pain resolve quicker. Thank you for trusting us with your care and coming to the emergency department, you rightfully did so. Please follow-up with Dr. Khan or [facility] for your GI follow-up. Thank you for trusting us with your care. *What to do: *Please continue to take your regular medications as directed. [x ] New medication prescriptions sent to your pharmacy: [[facility]] [ ] New medication written as a paper prescription [ ] No new medications given *Please follow up with your primary care provider in 2-3 days, call for an appointment. Let them know you were seen in the Emergency Department and that we asked that you be seen for follow-up. We will electronically transmit a record of today's note if your PCP is in our system *If you do not have a primary care provider please contact [phone] to establish care with one of the [facility] primary care providers. *Return to Emergency Department if you should have any new, worsening or concerning symptoms, such as [fever greater than 101F, chills, worsening pain, persistent vomiting or other bothersome symptoms] Prescriptions: New promethazine 12.5 mg suppository 12.5 mg KY TID Qty: 12 0RF hydroxyzine HCl 25 mg tablet 25 mg PO BID PRN (Reason: anxiety) Qty: 20 0RF amoxicillin-pot clavulanate 875-125 mg tablet 1 tab PO BID 7 Days Qty: 14 0RF promethazine 12.5 mg suppository 12.5 mg KY TID PRN (Reason: vomiting) Qty: 12 0RF ondansetron 4 mg tablet,disintegrating 4 mg PO Q8H PRN (Reason: nausea and vomiting) Qty: 14 0RF hydroxyzine HCl 25 mg tablet 25 mg PO BID PRN (Reason: anxiety) Qty: 20 0RF ondansetron 4 mg tablet,disintegrating 4 mg PO Q8H PRN (Reason: nausea and vomiting) Qty: 14 0RF promethazine 25 mg suppository 25 mg KY Q6H PRN (Reason: nausea and vomiting) Qty: 12 0RF No Action ondansetron 4 mg tablet,disintegrating 4 mg PO Q6H PRN (Reason: nausea and vomiting) Qty: 10 0RF Referrals: Isaac Khan MD [Physician] - Provider,Keo MORENO [Primary Care Provider] - Visit Report Forms: Patient Portal/API <Melanie Alegre DO - Last Filed: 12/27/21 21:48> [facility] ED Attending Jana Attestation: I was immediately available in the department for consultation. Documentation has been reviewed.
[2021-12-21 16:24] LABS: Bacteria Urine Occasional (0-1); Culture Indicated Urine Cult Not Indicated; RBC Urine 0-1/HPF (0-5/HPF); Squamous Epithelial Cell Urine 0-1 /HPF (0-5/HPF); WBC Urine 0-1/HPF (0-5/HPF)
[2021-12-21] MEDS: AMOXICILLIN/CLAV 875/125 MG 1 TAB PO (16:52)
== END 2021-12-21 17:24 | disposition home or self-care (01) ==
PROVIDERS: Emergency Medicine; Emergency Provider Nurse Practitioner Critical Care Medicine
DX: K57.92 Diverticulitis of intestine, part unspecified, without perforation or abscess without bleeding (principal); R11.10 Vomiting, unspecified; K80.20 Calculus of gallbladder without cholecystitis without obstruction
CPT/HCPCS: 36415; 74177; 80053; 81003; 81015; 81025; 83690; 85025; 96361; 96374; 96375; 99284; J1885; J2405; Q9967

== ENCOUNTER → 2022-05-13 09:39 | Outpatient (CLI) | payer OTHER, SELFPAY ==
[2022-05-13 11:40] LABS: COVID19 -Nasal RAPID Negative (Negative)
== END ==
PROVIDERS: Visit Provider Surgery
DX: Z01.812 Encounter for preprocedural laboratory examination (principal); Z20.822 Contact with and (suspected) exposure to COVID-19
CPT/HCPCS: 87635; C9803

== ENCOUNTER 2022-05-14 11:48 | Day surgery (SDC) | payer OTHER, SELFPAY ==
[2022-05-14 12:33] VITALS: BP 116/87; PULSE 79; RESP 16; TEMP 36.2; O2SAT 99; BMI 33.9
--- NOTE | 2022-05-14 12:50 | P.HP_ITS ---
History of Present Illness History of Present Illness Date Patient Seen: 05/14/22 Time Patient Seen: 12:50 Chief complaint: Colonoscopy/EGD Narrative: 46-year-old woman here for screening colonoscopy. She is had several episodes of uncomplicated diverticulitis and is here for follow-up. She is doing well no abdominal pain fever. Please refer to the H& P from January 2022 for further detail. Patient History Medical History (Updated 05/14/22 @ 12:24 by Beverly Craig RN) Diverticulitis Fatty liver Frequent UTI Hiatal hernia Incisional hernia Kidney stone Surgical History (Updated 05/14/22 @ 12:17 by Beverly Craig RN) H/O ventral hernia repair H/O: hysterectomy Hx of appendectomy (~1997) S/P ACL repair (~1993) Family & Social History Family History Grandmother Breast cancer Social History: household members spouse Tobacco & Substance use: Smoking Status Never smoker alcohol intake never alcohol intake frequency other Substance Use Type does not use Meds Home Medications and Allergies Home Medications Medication Instructions Recorded Confirmed Type acetaminophen 325 mg PO PRN PRN Headache 02/21/22 05/14/22 History Allergies Allergy/AdvReac Type Severity Reaction Status Date / Time Penicillins Allergy Verified 05/14/22 12:19 acetaminophen [From Percocet] AdvReac Severe Vomiting Verified 05/14/22 12:20 oxycodone [From Percocet] AdvReac Severe Vomiting Verified 05/14/22 12:20 NSAIDS (Non-Steroidal AdvReac Mild Verified 05/14/22 12:32 Anti-Inflamma morphine AdvReac Hives Verified 05/14/22 12:19 Exam Vital Signs (past 8 hours): - 05/14/22 12:33 Temperature 97.2 F L Pulse Rate 79 Respiratory Rate 16 Blood Pressure 116/87 Pulse Oximetry 99 Oxygen Delivery Method Room Air Oxygen Delivery Method Room Air Narrative Exam Narrative: General adult woman alert oriented no acute distress Abdomen soft nontender nondistended Assessment & Plan Assessment & Plan narrative: The patient requires colorectal screening and colonoscopy is recommended. Technical details were discussed. Risks, benefits, alternatives explained. Risks including but not limited to myocardial infarction, aspiration, bleeding, pain, missed lesion, incomplete examination, need for further radiographic studies, colonic perforation, and need for major abdominal surgery were discus sed. All questions were answered to their satisfaction, and they are in agreement with this plan. Time Spent With Patient Critical Care time: I spent a total of [] minutes of critical care time on this patient's care today; this time is exclusive of procedural time.
[2022-05-14] MEDS: LACTATED RINGERS 1,000 ML 42 ML IV (12:51)
--- NOTE | 2022-05-14 13:19 | P.OP.COLON_ITS ---
Operative Date/Time/Diagnoses Date of procedure: 05/14/22 Time of procedure: 13:19 Pre-op diagnosis: Colorectal screening. Diverticulosis Post-op diagnosis: same Procedure & Clinicians Study performed: Colonoscopy Same procedure as scheduled: Yes Indications: 46-year-old woman multiple episodes of uncomplicated diverticulosis here for screening colonoscopy. Surgeon: Isaac Khan Procedure Notes Procedure in detail: The history and physical was performed/updated and the patient is ASA class is 2. The procedure was discussed in detail with the patient. Potential risks complications including infection, bleeding, missed diagnosis, perforation, need for surgery, and were explained. Their questions were answered and informed consent was obtained. Patient was brought to the procedure room and placed standard monitoring equip ment. The patient's vital signs were monitored continuously throughout the entire procedure. Prior to starting time-out was performed. The patient was placed in the left lateral recumbent position. Procedural sedation was administered by anesthesia. Examination began with a thorough inspection of the perianal area there was no evidence of fissures, fistulae, external hemorrhoids or cutaneous malignancy. The colonoscopy scope was then placed into the anal canal and was advanced to the cecum, which was identified by the ileocecal valve, the appendiceal orifice and the confluence of the taenia. The scope was then slowly withdrawn examining colon thoroughly in all directions, irrigating it of any residual stool. FINDINGS 1. No masses or polyps 2. Sigmoid colon with mild diverticulosis no active inflammation The patient tolerated the procedure well. They will be discharged once criteria are met. The prep was of good/excellent quality. The withdrawl time was 7 minutes. Specimen(s): none sent Complications: none Post-procedure Recommendations: High fiber diet Disposition: same day surgery
[2022-05-14 13:24] VITALS: BP 114/81; PULSE 78; RESP 16; TEMP 36.8; O2SAT 98
[2022-05-14 13:29] VITALS: BP 107/77; PULSE 73; RESP 16; O2SAT 98
[2022-05-14 13:50] VITALS: BP 108/79; PULSE 79; RESP 16; TEMP 36.2; O2SAT 99
== END 2022-05-14 14:00 | disposition home or self-care (01) ==
PROVIDERS: Referring Provider Surgery; Visit Provider Surgery
PROC: 0DJD8ZZ Inspection of Lower Intestinal Tract, Via Natural or Artificial Opening Endoscopic (ICD-10-PCS; CPT 45378; principal; 2022-05-14 13:45)
DX: Z12.11 Encounter for screening for malignant neoplasm of colon (principal); K57.30 Diverticulosis of large intestine without perforation or abscess without bleeding
CPT/HCPCS: 45378; J2704

== ENCOUNTER 2023-01-01 05:39 | Observation (INO) | payer OTHER, SELFPAY ==
[2023-01-01] VITALS (23 sets, daily range): BP systolic 106–146; BP diastolic 60–93; PULSE 61–95; RESP 12–24; TEMP 36.1–36.7; O2SAT 92–100; BMI 33.0; BMI 34.1
--- NOTE | 2023-01-01 | DI.RAD.S_ITS ---
PROCEDURE: XR ABDOMEN 1V INDICATIONS: CYSTOSCOPY W/ LEFT URETERAL STENT PLACEMENT TECHNIQUE: One view of the abdomen acquired. COMPARISON: [facility], CT, CT KIDNEY URETER BLADDER (KUB), 01/01/2023, 6:30. [facility], CR, XR KUB, 01/01/2023, 12:17. FINDINGS: Single fluoroscopy image is obtained, centered to the left kidney, demonstrating a ureteral stent partially formed in the left upper quadrant, presumably within the left renal collecting system. IMPRESSION: Left ureteral stent placement. Dictated by: Enrike Morejon M.D. on 01/01/2023 at 16:51 Approved by: Enrike Morejon M.D. on 01/01/2023 at 16:53
--- NOTE | 2023-01-01 | DI.RAD.S_ITS ---
PROCEDURE: XR KUB INDICATIONS: Left ureteral calculus TECHNIQUE: One view of the abdomen acquired. COMPARISON: [facility], CT, CT KIDNEY URETER BLADDER (KUB), 01/01/2023, 6:30. FINDINGS: Surgical changes and devices: None. Bowel: Bowel gas pattern is normal. Soft tissues: No suspicious abdominal calcifications. Visualized solid organ contours appear normal in size. Bones: No suspicious bony lesions. IMPRESSION: Left ureteral calculus noted on the concurrent CT is not well depicted on current study Approved by: Raudel Carroll M.D. on 01/01/2023 at 12:23
[2023-01-01 06:07] LABS: Bacteria Urine Moderate (10-30); Culture Indicated Urine Specimen Cultured; Hyaline Casts Urine 0-1/LPF; Mucus Urine 1+ (Negative); RBC Urine 5-10/HPF (0-5/HPF); Squamous Epithelial Cell Urine 1-5 /HPF (0-5/HPF); WBC Urine 30-100/HPF (0-5/HPF)
[2023-01-01 06:15] LABS: Add Manual Diff / Slide Review NO; Basophils Absolute Auto 100 /uL (0-100); Basophils Percent Auto 0.7 % (0-2); Eosinophils Absolute Auto 100 /uL (0-450); Eosinophils Percent Auto 1.1 % (2-4); Hematocrit 38.3 % (36-46); Hemoglobin 12.9 g/dL (12.0-16.0); Lymphocytes Absolute Auto 1200 /uL (1100-4500); Lymphocytes Percent Auto 13.6 % (25-40); Mean Corpuscular HGB Conc 33.5 % (30-36); Mean Corpuscular Hemoglobin 27.7 PG (26-34); Mean Corpuscular Volume 82.5 fL (80-100); Monocytes Absolute Auto 500 /uL (0-900); Monocytes Percent Auto 5.5 % (3-14); Neutrophils Absolute Auto 7000 /uL (1500-7000); Neutrophils Percent Auto 79.1 % (50-75); Platelet Count 303 X10^3/uL (150-400); Red Blood Cell Count 4.64 X10^6/uL (4.0-5.2); Red Cell Distribution Width 14.9 % (11.6-14.8); White Blood Cell Count 8.8 X10^3/uL (4.5-11.0)
--- NOTE | 2023-01-01 06:15 | DI.CT.S_ITS ---
PROCEDURE: CT KIDNEY URETER BLADDER (KUB) INDICATIONS: left flank pain hx kidney stones TECHNIQUE: Axial sections were acquired from the lung bases to the pubic symphysis. Coronal and sagittal reformats were performed. For radiation dose reduction, the following was used: automated exposure control, adjustment of mA and/or kV according to patient size. COMPARISON: [facility], CT, CT ABDOMEN PELVIS W CON, 12/21/2021, 15:16. FINDINGS: Image quality: Excellent. Lung bases: Unremarkable. Heart: No significant findings. URINARY: Kidneys and ureters: Multiple amorphous calcifications are seen in the left proximal ureter at the ureteropelvic junction measuring approximately 8 x 5 mm in axial dimensions by 22 mm in length with attenuation value of approximately 300 Hounsfield units. There is mild left hydronephrosis and left perinephric fat stranding. Amorphous calcifications are seen in the renal pyramids bilaterally suspicious for medullary nephrocalcinosis. No discrete right-sided calculus or right hydronephrosis. The remainder of the left ureter is clear. Bladder: Normal wall thickness. No stones. ABDOMEN: Liver: Unremarkable. Gallbladder: Multiple calcified gallstones are present. No pericholecystic inflammatory changes. Biliary ducts: Unremarkable. Pancreas: Unremarkable. Spleen: Unremarkable. Adrenal Glands: Unremarkable. Stomach and Bowel: Multiple diverticula are seen in the colon. There is bowel wall thickening and inflammatory fat stranding surrounding a diverticulum at the distal descending colon, consistent with acute diverticulitis. Small bowel loops and stomach are unremarkable. No focal fluid collection. Peritoneum: No abnormal intraperitoneal fluid. No free air. Ventral Wall: No hernia. Abdominal Nodes: No enlarged retroperitoneal or mesenteric lymph nodes. Vessels: Aorta and inferior vena cava are normal in size. PELVIS: Pelvic Organs: Unremarkable. Pelvic Nodes: Unremarkable. Miscellaneous: No inguinal hernias are seen. Bones: Unremarkable. IMPRESSION: 1. Focal inflammatory fat stranding and bowel wall thickening surrounding a diverticulum at the distal descending colon is suspicious for acute uncomplicated diverticulitis. 2. Amorphous calcifications within the left proximal ureter at the ureteropelvic junction measuring up to 22 mm in length. Mild left hydronephrosis and perinephric fat stranding. 3. Amorphous calcifications in the bilateral renal medullary pyramids is suspicious for medullary nephrocalcinosis. 4. Cholelithiasis. Approved by: Freddie Flowers M.D. on 01/01/2023 at 9:26
[2023-01-01] MEDS: ONDANSETRON 4 MG/2 ML INJ IV ×3 (06:19→16:09)
[2023-01-01] MEDS: KETOROLAC 30 MG/ML VIAL 15 MG IV (06:19)
[2023-01-01 06:25] LABS: Alanine Aminotransferase 23 IU/L (<35); Albumin 4.2 g/dL (3.5-5.0); Albumin Globulin Ratio 1.1 (1.0-2.8); Alkaline Phosphatase 57 U/L (38-126); Aspartate Aminotransferase 23 IU/L (14-36); BUN Creatinine Ratio 22.7 (6-22); Bilirubin Total 0.3 mg/dL (0.2-1.3); Blood Urea Nitrogen 20 mg/dL (7-17); Calcium 9.3 mg/dL (8.4-10.2); Carbon Dioxide 23 mmol/L (22-32); Chloride 107 mmol/L (98-107); Estimated Glomerular Filt Rate > 60 mL/min (>60); Globulin 3.7 g/dL (1.7-4.1); Glucose 121 mg/dL (70-100); HEMOLYSIS < 15 (0-50); Potassium 4.4 mmol/L (3.4-5.1); Sodium 138 mmol/L (137-145); Total Protein 7.9 g/dL (6.3-8.2)
--- NOTE | 2023-01-01 07:39 | ED.BACK ---
HPI - Back Pain/Injury General Chief Complaint: Back Pain/Injury Stated Complaint: kidney stone Time Seen by Provider: 01/01/23 06:35 Source: patient History of Present Illness HPI Narrative: Patient brought here by mother for complaints of left flank pain with nausea and vomiting. History of kidney stone. Feels like another kidney stone. No fever chills. No hematuria. Related Data Home Medications Medication Instructions Recorded Confirmed acetaminophen 325 mg PO PRN PRN Headache 02/21/22 01/01/23 Previous Rx's Medication Instructions Recorded ciprofloxacin HCl 500 mg tablet 500 mg PO BID #14 tabs 01/01/23 (Cipro) metoclopramide HCl 10 mg tablet 10 mg PO Q6H PRN nausea and 01/01/23 vomiting #20 tabs promethazine 25 mg rectal 25 mg [place] Q6H PRN nausea and 01/01/23 suppository (Promethegan) vomiting #12 ea tramadol 50 mg tablet 50 mg PO Q6H PRN pain #20 tabs 01/01/23 phenazopyridine 200 mg tablet 200 mg PO TID PRN pain 6 doses #6 01/03/23 (Pyridium) tabs Allergies Allergy/AdvReac Type Severity Reaction Status Date / Time Penicillins Allergy Verified 01/01/23 13:04 oxycodone [From Percocet] AdvReac Severe Vomiting Verified 01/01/23 13:04 NSAIDS (Non-Steroidal AdvReac Mild Verified 01/01/23 13:04 Anti-Inflamma morphine AdvReac Hives Verified 01/01/23 13:04 Review of Systems Review of Systems Narrative: GENERAL: negative chills, fatigue, malaise, fever, sweats. HEENT: negative sinus pain, ear pain, sore throat RESPIRATORY: negative dyspnea, cough CARDIOVASCULAR: negative chest pain, palpitations GASTROINTESTINAL: Positive flank pain nausea, vomiting, deny abdominal pain : negative dysuria, frequency, hematuria MUSCULOSKELETAL: negative muscle or bony pain SKIN: negative rash, skin lesions NEUROLOGIC: negative weakness, numbness ROS Unobtainable: All systems reviewed & are unremarkable except as noted in HPI and below Patient History Medical History Diverticulitis Fatty liver Frequent UTI Hiatal hernia Incisional hernia Kidney stone Surgical History H/O ventral hernia repair H/O: hysterectomy Hx of appendectomy (~1997) S/P ACL repair (~1993) Family History Grandmother Breast cancer Social History marital status: household members: spouse Smoking Status: Never smoker alcohol intake: never Smoking Status: Never smoker alcohol intake frequency: other Substance Use Type: does not use Exam Narrative Exam Narrative: GENERAL: in no distress, not toxic not dyspneic HEAD: Normocephalic. EYES: Pupils equal round ENT: Mucous membranes moist. NECK: Trachea midline. CARDIOVASCULAR: Regular rate and rhythm RESPIRATORY: Clear to auscultation. Breath sounds equal bilaterally. No wheezes, rales, or rhonchi. GASTROINTESTINAL: Abdomen soft, non-tender, no CVA tenderness, abdomen is soft flat nontender, bowel sounds present. No peritoneal signs EXTREMITIES: No gross deformities. BACK: No flank tenderness. NEURO: AOx4. SKIN: Warm and dry PSYCH: Not anxious, is cooperative Initial Vital Signs Initial Vital Signs: Vital Signs Temperature 97.9 F 01/01/23 05:43 Pulse Rate 67 01/01/23 05:43 Respiratory Rate 18 01/01/23 05:43 Blood Pressure 146/85 H 01/01/23 05:43 Pulse Oximetry 100 01/01/23 05:43 Oxygen Delivery Method Room Air 01/01/23 05:43 Course Orders Ordered: Discontinued Medications Acetaminophen (Acetaminophen 325 Mg Tablet) 650 mg PO Q4H PRN PRN Reason: Pain, Mild (1-3) Fentanyl (Fentanyl 100 Mcg/2 Ml Inj) 0 mcg IV Q5MIN PRN PRN Reason: Pain, Severe (7-10) Hydromorphone HCl (Hydromorphone 1 Mg Inj) 1 mg IV NOW ONE Stop: 01/01/23 07:19 Last Admin: 01/01/23 08:30 Dose: 1 mg Documented By: GITA Hydromorphone HCl (Hydromorphone 1 Mg Inj) 1 mg IV NOW ONE Stop: 01/01/23 09:36 Last Admin: 01/01/23 09:44 Dose: 1 mg Documented By: GITA Levofloxacin (Levaquin) 500 mg in 100 mls @ 100 mls/hr IV NOW ONE Stop: 01/01/23 08:19 Last Admin: 01/01/23 08:51 Dose: Not Given Documented By: GITA Ciprofloxacin (Cipro) 400 mg in 200 mls @ 200 mls/hr IV NOW ONE Stop: 01/01/23 08:38 Last Infusion: 01/01/23 09:45 Dose: 0 mls/hr Documented By: Admin: 01/01/23 08:30 Dose: 200 mls/hr Documented By: GITA Sodium Chloride (Normal Saline 0.9%) 1,000 mls @ 1,000 mls/hr IV BOLUS ONE Stop: 01/01/23 08:38 Last Infusion: 01/01/23 09:55 Dose: 0 mls/hr Documented By: Admin: 01/01/23 08:30 Dose: 1,000 mls/hr Documented By: GITA Gentamicin Sulfate 360 mg/ (Sodium Chloride) 109 mls @ 109 mls/hr IV NOW ONE Stop: 01/01/23 12:59 Last Admin: 01/01/23 13:26 Dose: 100 mls/hr Documented By: ADINA Lactated Ringer's (Lactated Ringers) 1,000 mls @ 21 mls/hr IV CONT SHAJI Last Infusion: 01/01/23 13:18 Dose: 100 mls/hr Documented By: Infusion: 01/01/23 13:00 Dose: 0 mls/hr Documented By: Admin: 01/01/23 12:30 Dose: 21 mls/hr Documented By: GITA Fosaprepitant 150 mg/ Sodium (Chloride) 150 mls @ 300 mls/hr IV NOW PRN PRN Reason: Nausea And Vomiting Lactated Ringer's (Lactated Ringers) 1,000 mls @ 120 mls/hr IV CONT SHAJI Ketorolac Tromethamine (Ketorolac 30 Mg/Ml Vial) 15 mg IV NOW ONE Stop: 01/01/23 05:58 Last Admin: 01/01/23 06:19 Dose: 15 mg Documented By: NASIM Metoclopramide HCl (Metoclopramide 10 Mg/2 Ml Inj) 10 mg IV NOW ONE Stop: 01/01/23 09:36 Last Admin: 01/01/23 09:42 Dose: 10 mg Documented By: GITA Ondansetron HCl (Ondansetron 4 Mg/2 Ml Inj) 4 mg IV NOW ONE Stop: 01/01/23 05:58 Last Admin: 01/01/23 06:19 Dose: 4 mg Documented By: NASIM Ondansetron HCl (Ondansetron 4 Mg/2 Ml Inj) 4 mg IV NOW ONE Stop: 01/01/23 13:13 Last Admin: 01/01/23 13:27 Dose: 4 mg Documented By: ADINA Ondansetron HCl (Ondansetron 4 Mg/2 Ml Inj) 4 mg IV NOW PRN PRN Reason: Nausea And Vomiting Last Admin: 01/01/23 16:09 Dose: 4 mg Documented By: ALLIE Prochlorperazine (Prochlorperazine 10 Mg/2 Ml Vial) 5 mg IV NOW ONE Stop: 01/01/23 11:26 Last Admin: 01/01/23 11:39 Dose: 5 mg Documented By: GITA Prochlorperazine (Prochlorperazine 10 Mg/2 Ml Vial) 5 mg IV NOW ONE Stop: 01/01/23 16:25 Last Admin: 01/01/23 16:35 Dose: 5 mg Documented By: ADINA Promethazine HCl (Promethazine 25 Mg Tablet) 12.5 mg PO NOW ONE Stop: 01/01/23 16:23 Last Admin: 01/01/23 16:34 Dose: 12.5 mg Documented By: ADINA Promethazine HCl (Promethazine 25 Mg Tablet) 25 mg PO Q4HR PRN PRN Reason: Nausea Scopolamine (Scopolamine 1 Patch) 1 patch TOP NOW ONE Stop: 01/01/23 13:13 Last Admin: 01/01/23 13:28 Dose: 1 patch Documented By: ADINA Vital Signs Vital signs: Vital Signs - 8 hr 01/01/23 05:43 01/01/23 08:36 01/01/23 08:50 Temperature 97.9 F Pulse Rate 67 62 Respiratory Rate 18 Blood Pressure 146/85 H 126/77 Pulse Oximetry 100 96 Oxygen Delivery Method Room Air 01/01/23 08:50 01/01/23 09:00 01/01/23 09:30 Temperature Pulse Rate 65 62 66 Respiratory Rate 18 21 Blood Pressure Pulse Oximetry 98 94 99 Oxygen Delivery Method 01/01/23 09:50 01/01/23 09:50 01/01/23 10:00 Temperature Pulse Rate 69 67 Respiratory Rate 24 19 Blood Pressure 120/69 Pulse Oximetry 100 94 Oxygen Delivery Method 01/01/23 10:30 01/01/23 11:39 Temperature Pulse Rate 61 72 Respiratory Rate 17 Blood Pressure 130/60 Pulse Oximetry 93 Oxygen Delivery Method MDM - Back Pain/Injury Lab Data 01/01/23 06:05 01/01/23 06:05 Labs: Lab Results 01/01/23 01/01/23 01/01/23 Range/Units 05:50 06:05 06:05 WBC 8.8 (4.5-11.0) X10^3/uL RBC 4.64 (4.0-5.2) X10^6/uL Hgb 12.9 (12.0-16.0) g/dL Hct 38.3 (36-46) % MCV 82.5 (80-100) fL MCH 27.7 (26-34) PG MCHC 33.5 (30-36) % RDW 14.9 H (11.6-14.8) % Plt Count 303 (150-400) X10^3/uL Neut % (Auto) 79.1 H (50-75) % Lymph % (Auto) 13.6 L (25-40) % Richardson % (Auto) 5.5 (3-14) % Eos % (Auto) 1.1 L (2-4) % Baso % (Auto) 0.7 (0-2) % Neut # (Auto) 7000 (2905-9613) /uL Lymph # (Auto) 1200 (5975-7645) /uL Richardson # (Auto) 500 (0-900) /uL Eos # (Auto) 100 (0-450) /uL Baso # (Auto) 100 (0-100) /uL Sodium 138 (137-145) mmol/L Potassium 4.4 (3.4-5.1) mmol/L Chloride 107 (98-107) mmol/L Carbon Dioxide 23 (22-32) mmol/L BUN 20 H (7-17) mg/dL Creatinine 0.88 (0.52-1.04) mg/dL Estimated GFR > 60 (>60) mL/min BUN/Creatinine Ratio 22.7 H (6-22) Glucose 121 H (70-100) mg/dL Calcium 9.3 (8.4-10.2) mg/dL Total Bilirubin 0.3 (0.2-1.3) mg/dL AST 23 (14-36) IU/L ALT 23 (<35) IU/L Alkaline Phosphatase 57 (38-126) U/L Total Protein 7.9 (6.3-8.2) g/dL Albumin 4.2 (3.5-5.0) g/dL Globulin 3.7 (1.7-4.1) g/dL Albumin/Globulin Ratio 1.1 (1.0-2.8) Urine RBC 5-10/hpf H (0-5/HPF) Urine WBC 30-100/hpf H (0-5/HPF) Ur Squamous Epith Cells 1-5 /hpf (0-5/HPF) Urine Bacteria Moderate (10-30) H (None) Hyaline Casts 0-1/lpf (None) Urine Mucus 1+ H (Negative) Ur Culture Indicated? Specimen cultured Urine Dip Bedside Urine Glucose Negative Bedside Urine Bilirubin - Negative Bedside Urine Ketone - Negative Urine Specific [place] 1.030 Bedside Urine Occult Blood +++ Bedside Urine pH 6.0 Bedside Urine Protein +/- 15 Bedside Urine Urobilinogen - Negative Bedside Urine Nitrite - Negative Bedside Urine Leukocytes +++ [address] scan - abdomen/pelvis: Radiologist's Impression: [address] [address] [address] Scan Report Signed Patient: Ida Villalobos MR#: [id number] : 1975 Acct:[id number] Age/Sex: 47 / F Date of Service: 01/01/23 Loc: ED Accession Number: [id number] ?? Procedure: CT kidney ureter bladder (KUB) Ordering Provider: Fauzia Abdul D.O. PROCEDURE:? CT KIDNEY URETER BLADDER (KUB) ? INDICATIONS:? left flank pain hx kidney stones ? TECHNIQUE:? Axial sections were acquired from the lung bases to the pubic symphysis.? Coronal and sagittal reformats were performed.? For radiation dose reduction, the following was used: ?automated exposure control, adjustment of mA and/or kV according to patient size.? ? COMPARISON:? [facility], CT, CT ABDOMEN PELVIS W CON, 12/21/2021, 15:16. ? FINDINGS:? Image quality:? Excellent.? ? Lung bases:? Unremarkable.? ? Heart:? No significant findings. ? URINARY: Kidneys and ureters:? Multiple amorphous calcifications are seen in the left proximal ureter at the ureteropelvic junction measuring approximately 8 x 5 mm in axial dimensions by 22 mm in length with attenuation value of approximately 300 Hounsfield units.? There is mild left hydronephrosis and left perinephric fat stranding.? Amorphous calcifications are seen in the renal pyramids bilaterally suspicious for medullary nephrocalcinosis.? No discrete right-sided calculus or right hydronephrosis.? The remainder of the left ureter is clear. ? Bladder:? Normal wall thickness. No stones. ? ? ? ABDOMEN: Liver:? Unremarkable.? ? Gallbladder:? Multiple calcified gallstones are present.? No pericholecystic inflammatory changes. Biliary ducts:? Unremarkable.? ? Pancreas:? Unremarkable.? ? Spleen:? Unremarkable.? ? Adrenal Glands:? Unremarkable.? ? ? Stomach and Bowel:? Multiple diverticula are seen in the colon.? There is bowel wall thickening and inflammatory fat stranding surrounding a diverticulum at the distal descending colon, consistent with acute diverticulitis.? Small bowel loops and stomach are unremarkable.? No focal fluid collection. Peritoneum:? No abnormal intraperitoneal fluid.? No free air.? ? Ventral Wall: ? No hernia.? Abdominal Nodes:? No enlarged retroperitoneal or mesenteric lymph nodes.? Vessels:? Aorta and inferior vena cava are normal in size.? ? PELVIS: Pelvic Organs:? Unremarkable.? ? Pelvic Nodes: Unremarkable. Miscellaneous: No inguinal hernias are seen. ? ? ? Bones:? Unremarkable. ? IMPRESSION:? 1. Focal inflammatory fat stranding and bowel wall thickening surrounding a diverticulum at the distal descending colon is suspicious for acute uncomplicated diverticulitis. 2. Amorphous calcifications within the left proximal ureter at the ureteropelvic junction measuring up to 22 mm in length.? Mild left hydronephrosis and perinephric fat stranding. 3. Amorphous calcifications in the bilateral renal medullary pyramids is suspicious for medullary nephrocalcinosis. 4. Cholelithiasis.? Approved by: Freddie Flowers M.D. on 01/01/2023 at 9:26 ? [facility] Narrative Medical decision making narrative: Patient brought here by ambulance from home for possible dislocation of the left hip. This would be his 4th dislocation. Had total hip replacement last year. Patient states he was in the shower this morning and he may have turned wrong and had his left knee directed inward. Denies any other injury. NPO since 9:30 p.m. last night. After history and exam CBC CMP urinalysis CT KUB Toradol Zofran normal saline Dilaudid Cipro MDM CC: Flank pain Complicating co-morbidities: History of kidney stone history of pyelonephritis Data collected from: Patient and mother Medical records reviewed: CT reports from here on December 21, 2021 and July 24, 2021 Differential considered: Includes but not limited to kidney stone pyelonephritis Exam documented above, pertinent findings include: No CVA tenderness, no fever Lab Test results independently reviewed as above. Pertinent findings: WBC 8.8 hemoglobin 12.9 sodium 138 potassium 4.4 BUN 20 creatinine 0.88 GFR greater than 60 Urinalysis RBC 5-10, WBC 3100, moderate bacteria Imaging studies independently reviewed: CT shows irregular elongated stone on the left UPJ stone 25 mm by 6 mm x 7 mm. Mild left hydronephrosis and left perinephric stranding. Consultations: 7:30 a.m.. Spoke with Urology, Dr. Burton. At this time appropriate for discharge home and he will follow up with patient this Friday for possible stent for possibly on Friday. He has taken patient's information down. Patient to be placed on Cipro. Treatments: Toradol Dilaudid Zofran Cipro normal saline Re-evaluations: 7:40 a.m.. Spoke with patient and mother results. As well as treatment plan. They do not want to be admitted if possible. has a very important ceremony tomorrow. Is once in a lifetime event. Return precautions reviewed thoroughly with patient and mother. Mother is a nurse. Return precautions reviewed. Not toxic at discharge. Discussion: Appropriate for discharge home. I do have Urology Services contacted and close follow up. Patient does not want to be admitted. She has very important appointment tomorrow with her for ceremony. It is once in a lifetime opportunity. Return precautions reviewed. Not toxic at discharge. No fever here. WBC is normal in the serum work. At this time no CVA tenderness, however could be early pyelonephritis. This is considered. Patient and mother do understand. They understand and agree with antibiotics. Cipro was used as patient has uncertain variable allergies to penicillins and possibly cephalosporins. Patient has had fluoroquinolones in the past for diverticulitis. Reglan use to limit QT interaction instead of Zofran. Patient thinks she may be able to try tramadol. The other pain medications cause nausea. Diagnosis: Kidney stone Addendum, 11:15 a.m.. Patient was discharge however patient returned because of nausea and was placed back on the tracker, in this time however, Dr. Burton called and would like to see patient in the emergency department and would possibly do surgery now urgently. Discharge Plan Departure Patient Disposition: Admitted to Surgery Clinical Impression: Kidney stone on left side, Acute UTI Admit Date/Time: 01/01/23 11:48 Admit Provider: Anshu Burton
[2023-01-01] MEDS: HYDROMORPHONE 1 MG INJ IV ×2 (08:30→09:44)
[2023-01-01] MEDS: SODIUM CHLORIDE 0.9% 1,000 ML 1000 ML IV (08:30)
[2023-01-01] MEDS: CIPROFLOXACIN 400 MG/200 ML PIGGYBACK 200 MG IV (08:30)
[2023-01-01] MEDS: METOCLOPRAMIDE 10 MG/2 ML INJ IV (09:42)
[2023-01-01] MEDS: PROCHLORPERAZINE 10 MG/2 ML VIAL 5 MG IV ×2 (11:39→16:35)
--- NOTE | 2023-01-01 12:18 | PC.NURSE ---
Prepared pt for discharge, instructions to with follow up to Dr. Burton outpatient. Pt became nauseous, patient returned to ED tx room, Dr Burton called the ED at that time and decision was made to take pt to OR today at 2p for surgery. Family at bedside. Dr. Burton came to ED for bedside consultation and signed consent. Pt went to xray for KUB. Pt in [facility], [facility], [facility] removed. LR running @ 21ml/hr.
--- NOTE | 2023-01-01 12:26 | PC.NURSE ---
Pt's family is in town, visiting from [place]. They are in and out of room continuously. Pts mom is overly communicative/involved in the patient care process. Pt's mom requests immediate input/feedback on labs, referrals, prior care visits, requests for medical records, consultations, etcetera. Asked mother to communicate directly with the patient to see what the patient wants before instructing the RN to do things on her behalf. Pt asked family to move to the lobby so she can rest. Family in lobby. Pt resting quietly, in no apparent distress.
[2023-01-01] MEDS: LACTATED RINGERS 1,000 ML 21 ML IV (12:30)
--- NOTE | 2023-01-01 13:01 | PC.NURSE ---
upset with the aeronautical drafter re: going to surgery in a wheelchair vs stretcher.
--- NOTE | 2023-01-01 13:16 | SUR.HOLD ---
Pt arrived to holding from ER. Pt at bedside. Pt con't with nausea and vomitting. Will medicate as per anesthesia.
[2023-01-01] MEDS: GENTAMICIN 360 MG in SODIUM CHLORIDE 0.9% 100 ML 100 MG IV (13:26)
[2023-01-01] MEDS: SCOPOLAMINE 1 PATCH TOP (13:28)
--- NOTE | 2023-01-01 14:20 | P.HP_ITS ---
History of Present Illness History of Present Illness Date Patient Seen: 01/01/23 Time Patient Seen: 11:30 Chief complaint: kidney stone Narrative: Ida is a 47-year-old female presenting to [facility] ED approximately 0500 this morning. She had onset of severe left-sided flank and abdominal pain associated with nausea and vomiting at around 12:30 a.m.. She is had 5 previous stones. She does not recall ever having had a metabolic stone risk evaluation. She also states that she has a history of recurrent UTI. She reports that the last positive culture from February of 2022 was Proteus mirabilis. Documents from [facility] department requested and pending. On 07/24/2021 she had urine culture positive for E coli. CT KUB 01/01/2023 demonstrates a 22 x 8 x 9 mm obstructing calculus within the left proximal ureter. Hounsfield units approximately 300. KUB 01/01/2023, fails to demonstrate index calculus as being significantly radiopaque. She is not done well in the ED setting due to waves of ongoing nausea and vomiting. Her white blood cell count is not elevated and her renal function normal although BUN/creatinine ratio is elevated consistent with prerenal depletion. [facility] Medical History Diverticulitis Fatty liver Frequent UTI Hiatal hernia Incisional hernia Kidney stone Surgical History H/O ventral hernia repair H/O: hysterectomy Hx of appendectomy (~1997) S/P ACL repair (~1993) Family History Grandmother Breast cancer Social History marital status: household members: spouse Smoking Status: Never smoker alcohol intake: never Meds Home Medications and Allergies Home Medications Medication Instructions Recorded Confirmed Type acetaminophen 325 mg PO PRN PRN Headache 02/21/22 01/01/23 History ciprofloxacin HCl 500 mg tablet 500 mg PO BID #14 tabs 01/01/23 01/01/23 Rx (Cipro) metoclopramide HCl 10 mg tablet 10 mg PO Q6H PRN nausea and 08/09/23 08/09/23 Rx vomiting #20 tabs promethazine 25 mg rectal 25 mg NE Q6H PRN nausea and 01/01/23 01/01/23 Rx suppository (Promethegan) vomiting #12 ea tramadol 50 mg tablet 50 mg PO Q6H PRN pain #20 tabs 01/01/23 01/01/23 Rx Allergies Allergy/AdvReac Type Severity Reaction Status Date / Time Penicillins Allergy Verified 01/01/23 13:04 oxycodone [From Percocet] AdvReac Severe Vomiting Verified 01/01/23 13:04 NSAIDS (Non-Steroidal AdvReac Mild Verified 01/01/23 13:04 Anti-Inflamma morphine AdvReac Hives Verified 01/01/23 13:04 Review of Systems Review of Systems ROS: Yes All systems reviewed with the patient and are negative except as otherwise documented Exam Vital Signs (past 8 hours): - 01/01/23 08:36 01/01/23 08:50 01/01/23 08:50 Temperature Pulse Rate 62 65 Respiratory Rate Blood Pressure 126/77 Pulse Oximetry 96 98 Oxygen Delivery Method 01/01/23 09:00 01/01/23 09:30 01/01/23 09:50 Temperature Pulse Rate 62 66 Respiratory Rate 18 21 Blood Pressure 120/69 Pulse Oximetry 94 99 Oxygen Delivery Method 01/01/23 09:50 01/01/23 10:00 01/01/23 10:30 Temperature Pulse Rate 69 67 61 Respiratory Rate 24 19 17 Blood Pressure Pulse Oximetry 100 94 93 Oxygen Delivery Method 01/01/23 11:39 01/01/23 11:49 01/01/23 12:24 Temperature Pulse Rate 72 90 72 Respiratory Rate Blood Pressure 130/60 130/60 Pulse Oximetry 93 99 Oxygen Delivery Method 01/01/23 12:25 01/01/23 12:25 01/01/23 12:27 Temperature Pulse Rate 67 Respiratory Rate Blood Pressure 116/71 110/73 Pulse Oximetry 94 Oxygen Delivery Method 01/01/23 12:27 01/01/23 12:30 01/01/23 12:30 Temperature Pulse Rate 72 69 Respiratory Rate Blood Pressure 114/69 Pulse Oximetry 93 92 Oxygen Delivery Method 01/01/23 13:06 01/01/23 12:45 01/01/23 12:45 Temperature 97.3 F L Pulse Rate 73 66 Respiratory Rate 16 Blood Pressure 122/83 110/71 Pulse Oximetry 95 Oxygen Delivery Method Room Air Oxygen Delivery Method Room Air Narrative Exam Narrative: She is a pleasant, well-developed woman in moderate distress holding a emesis bag in ED stretcher. Head/neck-sclera clear pupils are equal and round bilaterally. Chest-equal and unlabored expansion bilaterally. Heart-normal sinus rhythm. Abdomen-obese of protuberant. Soft. Mild generalized tenderness on deep palpation, no rebound or guarding. Objective Labs 01/01/23 06:05 01/01/23 06:05 Labs: Laboratory Results - last 24 hr 01/01/23 01/01/23 01/01/23 05:50 06:05 06:05 WBC 8.8 RBC 4.64 Hgb 12.9 Hct 38.3 MCV 82.5 MCH 27.7 MCHC 33.5 RDW 14.9 H Plt Count 303 Neut % (Auto) 79.1 H Lymph % (Auto) 13.6 L Coles % (Auto) 5.5 Eos % (Auto) 1.1 L Baso % (Auto) 0.7 Neut # (Auto) 7000 Lymph # (Auto) 1200 Coles # (Auto) 500 Eos # (Auto) 100 Baso # (Auto) 100 Sodium 138 Potassium 4.4 Chloride 107 Carbon Dioxide 23 BUN 20 H Creatinine 0.88 Estimated GFR > 60 BUN/Creatinine Ratio 22.7 H Glucose 121 H Calcium 9.3 Total Bilirubin 0.3 AST 23 ALT 23 Alkaline Phosphatase 57 Total Protein 7.9 Albumin 4.2 Globulin 3.7 Albumin/Globulin Ratio 1.1 Urine RBC 5-10/hpf H Urine WBC 30-100/hpf H Ur Squamous Epith Cells 1-5 /hpf Urine Bacteria Moderate (10-30) H Hyaline Casts 0-1/lpf Urine Mucus 1+ H Ur Culture Indicated? Specimen cultured Assessment & Plan Assessment & Plan narrative: 1. Obstructing 22 x 8 x 9 mm left proximal ureteral calculus. 2. History of recurrent UTI. What is known at this point of previous species could be associated with struvite stone formation. CT imaging approximately a year ago did not show calculus. 3. UTI/left pyelonephritis. 4. Intractable left renal colic. Plan: 1. Urgent CYSTOSCOPY/LEFT URETERAL STONE MANIPULATION WITHOUT REMOVAL/PLACEMENT LEFT URETERAL STENT. 2. Follow-up urine cultures and adjust as indicated. We will plan final disposi tion after post anesthesia recovery. 3. Future left ureteroscopic laser lithotripsy. 4. Patient may benefit from future metabolic stone risk analysis.
--- NOTE | 2023-01-01 14:20 | PM.PREOP ---
Pre-operative Note COVID-19 Criteria for continued procedure: Expected advancement of disease process, Possibility delay results in more complex future surgery or treatment, Continuing or worsening of significant or severe pain, Delay expected to result in less-positive ultimate med/surg outcome and Non-surgical alternatives not available or appropriate per current SOC Interval Note History & Physical reviewed/Exam performed by Physician: Yes Changes to H&P: No
--- NOTE | 2023-01-01 14:44 | SUR.OPER ---
Lithotomy on padded OR bed, head on pillow, arms secured on padded arm boards at <90 degrees abduction. Legs secured in padded yellow fins stirrups.
[2023-01-01] MEDS: PROMETHAZINE 25 MG TABLET 12.5 MG PO (16:34)
--- NOTE | 2023-01-14 11:11 | P.OP_ITS ---
Procedure & Clinicians Procedure: 1. Cystoscopy/left ureteral stone manipulation without removal/placement left ureteral stent Same procedure as scheduled: Yes Indications: 1. Obstructing 22 x 8 by 9 mm left ureteropelvic junction calculus. 2. UTI/left pyelonephritis. Surgeon: Anshu Burton Click Yes if Unassisted: Yes Anesthesia Type: General Operative Notes Findings: 1. Urethra-normal caliber and location without lesion. 2. Bladder-normal ureteral orifices bilaterally. Cloudy, obstructive efflux visualized following manipulation of stone in positioning of left ureteral stent. Closure Type: not applicable Specimen(s): none sent Applied: other (7 x 22-32 cm multi-length stent) Estimated Blood Loss (mL): 0 Blood products transfused: none Procedure in detail: The patient was positioned supine and was administered general anesthesia. She was then repositioned in semi lithotomy in the lower abdomen, genitalia, and groin were then prepped and draped in sterile fashion. The 22 Macedonian panendoscope was then passed the lower urinary tract with the findings as described above. A 0.35 hybrid guidewire was then advanced through the working channel of the panendoscope and advanced to the left ureteral orifice and then proximally under direct fluoroscopic guidance. Next, a 7 Macedonian by 20-32 cm multi-length stent was selected and was advanced over the hybrid guidewire, again under direct and fluoroscopic guidance. NO RETRIEVAL LINE WAS LEFT ATTACHED. The bladder is then drained completely in the panendoscope was removed. The patient was then repositioned in supine, was awakened common then transferred to [facility] for transport to recovery. Complications: none Post-operative Condition: stable Disposition: PACU Plan for aftercare: Discharge home.
== END 2023-01-01 17:10 | disposition home or self-care (01) ==
LOC: ED 11:47 → AC 11:49
PROVIDERS: Emergency Medicine; Admitting Provider Specialist; Emergency Provider Emergency Medicine; Referring Provider Emergency Medicine; Visit Provider Specialist
PROC: (CPT 52330; principal; 2023-01-01 14:00)
DX: R10.9 Unspecified abdominal pain (principal); R11.2 Nausea with vomiting, unspecified; N20.1 Calculus of ureter; Z87.440 Personal history of urinary (tract) infections
CPT/HCPCS: 52330; 52332; 36415; 74018; 74176; 76000; 80053; 81003; 81015; 82962; 85025; 87077; 87086; 87186; 96365; 96375; 96376; 99284; G0378; J0744; J0780; J1170; J1885; J2405; J2765; J3010

== ENCOUNTER 2023-01-03 06:11 | Emergency (ER) | payer OTHER, SELFPAY ==
[2023-01-03] VITALS (8 sets, daily range): BP systolic 116–129; BP diastolic 56–78; PULSE 75–98; RESP 16; TEMP 37.4; O2SAT 93–97; BMI 33.0
[2023-01-03] MEDS: SODIUM CHLORIDE 0.9% 1,000 ML 1000 ML IV (06:39)
[2023-01-03] MEDS: KETOROLAC 30 MG/ML VIAL 15 MG IV (06:39)
[2023-01-03 06:47] LABS: Add Manual Diff / Slide Review NO; Basophils Absolute Auto 0 /uL (0-100); Basophils Percent Auto 0.3 % (0-2); Eosinophils Absolute Auto 0 /uL (0-450); Eosinophils Percent Auto 0.3 % (2-4); Hematocrit 33.2 % (36-46); Lymphocytes Absolute Auto 500 /uL (1100-4500); Lymphocytes Percent Auto 4.9 % (25-40); Mean Corpuscular HGB Conc 33.2 % (30-36); Mean Corpuscular Hemoglobin 27.6 PG (26-34); Mean Corpuscular Volume 83.3 fL (80-100); Monocytes Absolute Auto 1100 /uL (0-900); Monocytes Percent Auto 10.8 % (3-14); Neutrophils Absolute Auto 8700 /uL (1500-7000); Neutrophils Percent Auto 83.7 % (50-75); Platelet Count 254 X10^3/uL (150-400); Red Blood Cell Count 3.99 X10^6/uL (4.0-5.2); Red Cell Distribution Width 14.5 % (11.6-14.8); White Blood Cell Count 10.3 X10^3/uL (4.5-11.0)
[2023-01-03 06:55] LABS: Culture Indicated Urine Specimen Cultured; RBC Urine 30-100/HPF (0-5/HPF); Squamous Epithelial Cell Urine 1-5 /HPF (0-5/HPF); WBC Urine 30-100/HPF (0-5/HPF)
[2023-01-03 06:56] LABS: Bacteria Urine Moderate (10-30)
[2023-01-03 06:58] LABS: Lactate (Lactic Acid) 0.7 mmol/L (0.7-2.1)
[2023-01-03 07:01] LABS: Alanine Aminotransferase 21 IU/L (<35); Albumin 3.8 g/dL (3.5-5.0); Albumin Globulin Ratio 1.1 (1.0-2.8); Alkaline Phosphatase 49 U/L (38-126); Aspartate Aminotransferase 22 IU/L (14-36); BUN Creatinine Ratio 20.4 (6-22); Bilirubin Total 0.5 mg/dL (0.2-1.3); Blood Urea Nitrogen 22 mg/dL (7-17); Calcium 8.6 mg/dL (8.4-10.2); Carbon Dioxide 26 mmol/L (22-32); Chloride 106 mmol/L (98-107); Creatine Kinase 44 U/L (30-135); Estimated Glomerular Filt Rate > 60 mL/min (>60); Globulin 3.4 g/dL (1.7-4.1); Glucose 122 mg/dL (70-100); HEMOLYSIS < 15 (0-50); Potassium 3.8 mmol/L (3.4-5.1); Sodium 137 mmol/L (137-145); Total Protein 7.2 g/dL (6.3-8.2)
[2023-01-03 07:11] LABS: Troponin I < 0.012 ng/mL (0.01-0.034)
[2023-01-03 07:16] LABS: Procalcitonin 0.13 ng/mL (<0.5)
--- NOTE | 2023-01-03 07:17 | ED.FEVER ---
HPI - Fever General Chief Complaint: Fever Stated Complaint: 102 fever, lt side abd pain Time Seen by Provider: 01/03/23 06:31 Source: patient Mode of arrival: Ambulatory Limitations: no limitations History of Present Illness HPI Narrative: This is a 47-year-old female with history of kidney stones, recurrent diverticulitis, prediabetes presents with complaint of fever that started overnight and new left flank and lower quadrant pain. Patient states that she was here the 9th was admitted had a renal stent placed but told she had quite infected urine was given Cipro IV x2 and then discharged home on oral ciprofloxacin. Patient states she was feeling significantly better after the procedure. She is continued to feel improved until last night. She would a temp up to 102 F although states has not had any Tylenol or ibuprofen this morning. No chest pain no shortness of breath, no nausea or vomiting, states she has not had a bowel movement recently. But no frequency or urgency she has had some mild dysuria. Patient denies other surgeries besides her urinary stent and mesh for hernia repair. She is allergic to penicillin, states she does not tolerate oral narcotics well. No tobacco, no alcohol or illicit Related Data Home Medications Medication Instructions Recorded Confirmed acetaminophen 325 mg PO PRN PRN Headache 02/21/22 01/01/23 Previous Rx's Medication Instructions Recorded ciprofloxacin HCl 500 mg tablet 500 mg PO BID #14 tabs 01/01/23 (Cipro) metoclopramide HCl 10 mg tablet 10 mg PO Q6H PRN nausea and 01/01/23 vomiting #20 tabs promethazine 25 mg rectal 25 mg VA Q6H PRN nausea and 01/01/23 suppository (Promethegan) vomiting #12 ea tramadol 50 mg tablet 50 mg PO Q6H PRN pain #20 tabs 01/01/23 phenazopyridine 200 mg tablet 200 mg PO TID PRN pain 6 doses #6 01/03/23 (Pyridium) tabs Allergies Allergy/AdvReac Type Severity Reaction Status Date / Time Penicillins Allergy Verified 01/01/23 13:04 oxycodone [From Percocet] AdvReac Severe Vomiting Verified 01/01/23 13:04 NSAIDS (Non-Steroidal AdvReac Mild Verified 01/01/23 13:04 Anti-Inflamma morphine AdvReac Hives Verified 01/01/23 13:04 Review of Systems Review of Systems ROS Unobtainable: All systems reviewed & are unremarkable except as noted in HPI and below Patient History Medical History Diverticulitis Fatty liver Frequent UTI Hiatal hernia Incisional hernia Kidney stone Surgical History H/O ventral hernia repair H/O: hysterectomy Hx of appendectomy (~1997) S/P ACL repair (~1993) Family History Grandmother Breast cancer Social History marital status: household members: spouse Smoking Status: Never smoker alcohol intake: never Smoking Status: Never smoker alcohol intake frequency: other Substance Use Type: does not use Exam Narrative Exam Narrative: GENERAL: Alert and oriented x three, female in mild distress HEENT: Head normocephalic, atraumatic, EOMI, pupils reactive, face symmetric, moist mucous membranes NECK: Supple, full range of motion CARDIOVASCULAR: Regular rate and rhythm without murmurs, rubs or gallops. RESPIRATORY: Breath sounds equal bilaterally, no wheezes rales or rhonchi. ABDOMEN: Soft, nontender. Normoactive bowel sounds all 4 quadrants. No guarding or rebound, rigidity, no mass : No CVA tenderness EXTREMITIES: Normal range of motion, no clubbing or edema. Neurovascularly intact NEUROLOGICAL: Cranial nerves II through XII grossly intact. Moving all extremities SKIN: Warm, dry, no petechiae, no rashes or lesions. Initial Vital Signs Initial Vital Signs: Vital Signs Temperature 99.4 F 01/03/23 06:19 Pulse Rate 98 H 01/03/23 06:19 Respiratory Rate 16 01/03/23 06:19 Blood Pressure 129/78 01/03/23 06:19 Pulse Oximetry 93 01/03/23 06:19 Oxygen Delivery Method Room Air 01/03/23 06:19 Course Orders Ordered: Discontinued Medications Sodium Chloride (Normal Saline 0.9%) 1,000 mls @ 1,000 mls/hr IV BOLUS ONE Stop: 01/03/23 07:30 Last Infusion: 01/03/23 07:39 Dose: 0 mls/hr Documented By: Admin: 01/03/23 06:39 Dose: 1,000 mls/hr Documented By: SELVIN Levofloxacin (Levaquin) 750 mg in 150 mls @ 100 mls/hr IV NOW ONE Stop: 01/03/23 09:05 Last Infusion: 01/03/23 09:50 Dose: 0 mls/hr Documented By: Admin: 01/03/23 08:17 Dose: 100 mls/hr Documented By: NITIN Ketorolac Tromethamine (Ketorolac 30 Mg/Ml Vial) 15 mg IV NOW ONE Stop: 01/03/23 06:32 Last Admin: 01/03/23 06:39 Dose: 15 mg Documented By: SELVIN Vital Signs Vital signs: Vital Signs - 8 hr 01/03/23 06:19 01/03/23 08:23 01/03/23 08:24 Temperature 99.4 F Pulse Rate 98 H 76 Respiratory Rate 16 Blood Pressure 129/78 124/67 Pulse Oximetry 93 95 Oxygen Delivery Method Room Air 01/03/23 08:24 Temperature Pulse Rate 79 Respiratory Rate Blood Pressure Pulse Oximetry 96 Oxygen Delivery Method MDM - Fever Lab Data 01/03/23 06:30 01/03/23 06:30 Labs: Lab Results 01/03/23 01/03/23 01/03/23 Range/Units 06:23 06:30 06:30 WBC 10.3 (4.5-11.0) X10^3/uL RBC 3.99 L (4.0-5.2) X10^6/uL Hgb 11.0 L (12.0-16.0) g/dL Hct 33.2 L (36-46) % MCV 83.3 (80-100) fL MCH 27.6 (26-34) PG MCHC 33.2 (30-36) % RDW 14.5 (11.6-14.8) % Plt Count 254 (150-400) X10^3/uL Neut % (Auto) 83.7 H (50-75) % Lymph % (Auto) 4.9 L (25-40) % Davidson % (Auto) 10.8 (3-14) % Eos % (Auto) 0.3 L (2-4) % Baso % (Auto) 0.3 (0-2) % Neut # (Auto) 8700 H (3241-4262) /uL Lymph # (Auto) 500 L (8593-7791) /uL Davidson # (Auto) 1100 H (0-900) /uL Eos # (Auto) 0 (0-450) /uL Baso # (Auto) 0 (0-100) /uL Sodium 137 (137-145) mmol/L Potassium 3.8 (3.4-5.1) mmol/L Chloride 106 (98-107) mmol/L Carbon Dioxide 26 (22-32) mmol/L BUN 22 H (7-17) mg/dL Creatinine 1.08 H (0.52-1.04) mg/dL Estimated GFR > 60 (>60) mL/min BUN/Creatinine Ratio 20.4 (6-22) Glucose 122 H (70-100) mg/dL Lactate (0.7-2.1) mmol/L Calcium 8.6 (8.4-10.2) mg/dL Total Bilirubin 0.5 (0.2-1.3) mg/dL AST 22 (14-36) IU/L ALT 21 (<35) IU/L Alkaline Phosphatase 49 (38-126) U/L Total Creatine Kinase 44 (30-135) U/L Troponin I < 0.012 (0.01-0.034) ng/mL Total Protein 7.2 (6.3-8.2) g/dL Albumin 3.8 (3.5-5.0) g/dL Globulin 3.4 (1.7-4.1) g/dL Albumin/Globulin Ratio 1.1 (1.0-2.8) Procalcitonin 0.13 (<0.5) ng/mL Urine RBC 30-100/hpf H (0-5/HPF) Urine WBC 30-100/hpf H (0-5/HPF) Ur Squamous Epith Cells 1-5 /hpf (0-5/HPF) Urine Bacteria Moderate (10-30) H (None) Ur Culture Indicated? Specimen cultured 01/03/23 Range/Units 06:30 WBC (4.5-11.0) X10^3/uL RBC (4.0-5.2) X10^6/uL Hgb (12.0-16.0) g/dL Hct (36-46) % MCV (80-100) fL MCH (26-34) PG MCHC (30-36) % RDW (11.6-14.8) % Plt Count (150-400) X10^3/uL Neut % (Auto) (50-75) % Lymph % (Auto) (25-40) % Davidson % (Auto) (3-14) % Eos % (Auto) (2-4) % Baso % (Auto) (0-2) % Neut # (Auto) (7087-1210) /uL Lymph # (Auto) (7974-9766) /uL Davidson # (Auto) (0-900) /uL Eos # (Auto) (0-450) /uL Baso # (Auto) (0-100) /uL Sodium (137-145) mmol/L Potassium (3.4-5.1) mmol/L Chloride (98-107) mmol/L Carbon Dioxide (22-32) mmol/L BUN (7-17) mg/dL Creatinine (0.52-1.04) mg/dL Estimated GFR (>60) mL/min BUN/Creatinine Ratio (6-22) Glucose (70-100) mg/dL Lactate 0.7 (0.7-2.1) mmol/L Calcium (8.4-10.2) mg/dL Total Bilirubin (0.2-1.3) mg/dL AST (14-36) IU/L ALT (<35) IU/L Alkaline Phosphatase (38-126) U/L Total Creatine Kinase (30-135) U/L Troponin I (0.01-0.034) ng/mL Total Protein (6.3-8.2) g/dL Albumin (3.5-5.0) g/dL Globulin (1.7-4.1) g/dL Albumin/Globulin Ratio (1.0-2.8) Procalcitonin (<0.5) ng/mL Urine RBC (0-5/HPF) Urine WBC (0-5/HPF) Ur Squamous Epith Cells (0-5/HPF) Urine Bacteria (None) Ur Culture Indicated? Urine Dip Bedside Urine Glucose Negative Bedside Urine Bilirubin - Negative Bedside Urine Ketone - Negative Urine Specific [place]es 1.015 Bedside Urine Occult Blood +++ Bedside Urine pH 6.0 Bedside Urine Protein + 30 Bedside Urine Urobilinogen - Negative Bedside Urine Nitrite - Negative Bedside Urine Leukocytes +++ [address] scan - abdomen/pelvis: Radiologist's Impression: [address] [address] [address] Scan Report Signed Patient: Ida Villalobos MR#: [id number] : 1975 Acct:[id number] Age/Sex: 47 / F Date of Service: 01/03/23 Loc: ED Accession Number: [id number] ?? Procedure: CT abdomen pelvis w con Ordering Provider: Melanie Alegre D.O. PROCEDURE:? CT ABDOMEN PELVIS W CON ? INDICATIONS:? LLQ pain, recent stone and diverticulitis ? TECHNIQUE:? After the administration of IV contrast, axial sections were acquired from the lung bases to the pubic symphysis.? Coronal and sagittal reformats were performed.? For radiation dose reduction, the following was used:? automated exposure control, adjustment of mA and/or kV according to patient size. ? COMPARISON:? [facility], CR, XR ABDOMEN 1V, 01/01/2023, 14:56.? [facility], CT, CT KIDNEY URETER BLADDER (KUB), 01/01/2023, 6:30.? [facility], CT, CT ABDOMEN PELVIS W CON, 12/21/2021, 15:16. ? FINDINGS:? Image quality:? Excellent.? ? Lung bases:? Bibasilar atelectasis.? No pleural effusion.? ? Heart:? No significant findings. ? ? ABDOMEN: Liver:? No focal lesion. Gallbladder:? Not significantly distended.? 4 gallstones measuring approximately 1.4 cm. Biliary ducts:? Unremarkable.? ? Pancreas:? Enhances uniformly. Spleen:? No splenomegaly. Adrenal Glands:? Unremarkable.? ? Kidneys and Ureters:? Minimal left hydronephrosis.? Left double-J ureteral stent is coiled in the left renal pelvis and urinary bladder in the expected position.? No hydroureter.? Increased density at the proximal left ureter adjacent to the ureteral stent, (), consistent with residual stones.? There is a left perinephric fluid and fluid tracking along the retroperitoneum adjacent to the left ureter, increased compared to CT KUB 01/01/2023.? The left kidney enhance mint is decreased compared to the right.? No right hydronephrosis demonstrated.? No solid renal mass. ? Stomach and Bowel:? Stomach is not distended.? No small bowel obstruction.? There is minimal thickening of the rectum and sigmoid colon.? There is extensive diverticulosis.? Mild thickening in the left lower quadrant adjacent to the sigmoid colon, unchanged.? Of note this is at the site of remotely seen diverticulitis.? Peritoneum:? No abnormal intraperitoneal fluid.? No free air.? ? Ventral Wall: ? No hernia.? Abdominal Nodes:? A few shotty retroperitoneal nodes.? Vessels:? Aorta and inferior vena cava are normal in size.? ? PELVIS: Pelvic Organs:? Right ovarian cyst simple appearing measuring 2.3 cm, (), remotely 4 cm on 12/21/2021. Nodule in the region of the left external iliac measuring 1.4 cm, (), previously 0.9 cm, and more remotely 1.1 cm on 12/21/2021.? Suspect the left ovary.? Alternately, this could represent an inflamed lymph node.? Uterus is absent. ?? Bladder:? Punctate focus of gas in the urinary bladder likely due to prior intervention.? Left ureteral stent inferior tip is in the bladder.? No definite stone in the urinary bladder. Pelvic Nodes: No enlarged lymph nodes.? Miscellaneous: No inguinal hernias are seen. ? ? ? Bones:? No suspicious lesion. ? ? IMPRESSION:? 1. Stranding and fluid surrounding the left kidney and left ureter, new.? Decreased enhancement of the left kidney compared to the right.? Minimal left hydronephrosis.? Findings likely the sequelae of a recent stone treatment. ? 2. Small stone adjacent to the proximal left ureteral stent. ? 3. Mild thickening adjacent to the sigmoid colon in the left lower quadrant, unchanged.? This could be the sequelae of remote diverticulitis or acute on chronic diverticulitis. ? 4. Multiple gallstones.? ? ? Dictated by: Junior Joseph M.D. on 01/03/2023 at 8:10 ? ? Approved by: Junior Joseph M.D. on 01/03/2023 at 8:33?? MDM Narrative Medical decision making narrative: 47-year-old female with recent kidney stone/UTI went to the OR the night has a ureteral stent placed was told her urine was quite infected and placed on Cipro she believes she had 1 or 2 rounds of IV Cipro in the hospital and then discharged home has had 2 doses of oral Cipro. She states she was feeling better a little bit uncomfortable but had increasing flank and lower abdominal pain last night with fevers for early this morning. She is afebrile with normal vitals at this time. Labs overall appear well the creatinine is slightly increased from most recent. CT abdomen pelvis with contrast shows persistent slight diverticulitis with mild thickening unchanged from prior and patient has stranding and fluid in the left kidney and left ureter which is new compared to most prior decreased enhancement of the left kidney compared to the right and minimal left hydro findings they felt were likely sequela of recent stone treatment but could be related to infection. Patient's urine culture from 2 days ago was positive for Proteus mirabilis it does show sensitivity to ciprofloxacin. Patient feels improved here with a dose of Toradol and fluids. She does have an allergy to penicillin and develops hives and states she also has had amoxicillin or Augmentin and developed a rash several days into taking that prescription. She notes that last time she tried Cipro with Flagyl for her diverticulitis it made her vomit quite a bit. She states she was not taking or drinking alcohol with the Flagyl. Spoke with Dr. Burton, urology: Reviewed patient's findings, she would reported fever at of 102 F, some increased lower abdominal/flank pain. She is overall well-appearing, labs show a bump in her creatinine, BUN is 20, white count otherwise appropriate, other labs do not show a lot of major changes. Reviewed patient's CT imaging, findings today. He notes some if fever maybe typical if it is continuing to drop and decrease with frequency over time but if patient is having increasing fevers increasing pain were continuing to worsen she does not need to return for additional treatment. Discussed with patient, she feels much better she feels that she can return home we will continue with Cipro at this time she has total of 10 days' worth that she will complete. We discussed adding Flagyl for her diverticulitis but she notes that she can not tolerate this and she is had Augmentin and developed hives with that as well she states this feels very similar to her diverticulitis symptoms and has not had any worsening on CT imaging so will hold off. Discussed strict return precautions, she can do Tylenol and she has a prescription for tramadol for pain. For the short term to avoid NSAIDs she has a slight bump in her creatinine. Discharge Plan Departure Patient Disposition: Home Clinical Impression: UTI (urinary tract infection), S/P ureteral stent placement Activity Restrictions/Additional Instructions: Follow-up in the next week with Dr. Burton. Your imaging today shows your stent appears to be in place, stone appears to be close to the bladder, there is a very small amount of diverticulitis but appears to be very similar to what it was on her last imaging. You can continue with Tylenol up to a 1000 mg every 6 hours for pain or fever. You may also take the tramadol as prescribed by Dr. Burton Continue take your ciprofloxacin until completed. Prescription for Pyridium 1 tablet every 8 hours as needed for bladder spasm. Prescription sent to [facility] in [place]. Please return for persistent fevers new or worsening abdominal back or flank pain, vomiting, lightheadedness or passing out, difficulty or inability urinate or other new or concerning changes. Prescriptions: New phenazopyridine [Pyridium] 200 mg tablet 200 mg PO TID PRN (Reason: pain) Qty: 6 0RF No Action acetaminophen 325 mg PO PRN PRN (Reason: Headache) metoclopramide HCl 10 mg tablet 10 mg PO Q6H PRN (Reason: nausea and vomiting) Qty: 20 0RF tramadol 50 mg tablet 50 mg PO Q6H PRN (Reason: pain) Qty: 20 0RF ciprofloxacin HCl [Cipro] 500 mg tablet 500 mg PO BID Qty: 14 0RF promethazine [Promethegan] 25 mg suppository 25 mg VA Q6H PRN (Reason: nausea and vomiting) Qty: 12 0RF Referrals: Anshu Burton MD [Physician] - Provider,Keo MORENO [Primary Care Provider] - Stand Alone Forms: Patient Portal/API
--- NOTE | 2023-01-03 07:18 | DI.CT.S_ITS ---
PROCEDURE: CT ABDOMEN PELVIS W CON INDICATIONS: LLQ pain, recent stone and diverticulitis TECHNIQUE: After the administration of IV contrast, axial sections were acquired from the lung bases to the pubic symphysis. Coronal and sagittal reformats were performed. For radiation dose reduction, the following was used: automated exposure control, adjustment of mA and/or kV according to patient size. COMPARISON: [facility], CR, XR ABDOMEN 1V, 01/01/2023, 14:56. [facility], CT, CT KIDNEY URETER BLADDER (KUB), 01/01/2023, 6:30. [facility], CT, CT ABDOMEN PELVIS W CON, 12/21/2021, 15:16. FINDINGS: Image quality: Excellent. Lung bases: Bibasilar atelectasis. No pleural effusion. Heart: No significant findings. ABDOMEN: Liver: No focal lesion. Gallbladder: Not significantly distended. 4 gallstones measuring approximately 1.4 cm. Biliary ducts: Unremarkable. Pancreas: Enhances uniformly. Spleen: No splenomegaly. Adrenal Glands: Unremarkable. Kidneys and Ureters: Minimal left hydronephrosis. Left double-J ureteral stent is coiled in the left renal pelvis and urinary bladder in the expected position. No hydroureter. Increased density at the proximal left ureter adjacent to the ureteral stent, (2/44), consistent with residual stones. There is a left perinephric fluid and fluid tracking along the retroperitoneum adjacent to the left ureter, increased compared to CT KUB 01/01/2023. The left kidney enhance mint is decreased compared to the right. No right hydronephrosis demonstrated. No solid renal mass. Stomach and Bowel: Stomach is not distended. No small bowel obstruction. There is minimal thickening of the rectum and sigmoid colon. There is extensive diverticulosis. Mild thickening in the left lower quadrant adjacent to the sigmoid colon, unchanged. Of note this is at the site of remotely seen diverticulitis. Peritoneum: No abnormal intraperitoneal fluid. No free air. Ventral Wall: No hernia. Abdominal Nodes: A few shotty retroperitoneal nodes. Vessels: Aorta and inferior vena cava are normal in size. PELVIS: Pelvic Organs: Right ovarian cyst simple appearing measuring 2.3 cm, (), remotely 4 cm on 12/21/2021. Nodule in the region of the left external iliac measuring 1.4 cm, (), previously 0.9 cm, and more remotely 1.1 cm on 12/21/2021. Suspect the left ovary. Alternately, this could represent an inflamed lymph node. Uterus is absent. Bladder: Punctate focus of gas in the urinary bladder likely due to prior intervention. Left ureteral stent inferior tip is in the bladder. No definite stone in the urinary bladder. Pelvic Nodes: No enlarged lymph nodes. Miscellaneous: No inguinal hernias are seen. Bones: No suspicious lesion. IMPRESSION: 1. Stranding and fluid surrounding the left kidney and left ureter, new. Decreased enhancement of the left kidney compared to the right. Minimal left hydronephrosis. Findings likely the sequelae of a recent stone treatment. 2. Small stone adjacent to the proximal left ureteral stent. 3. Mild thickening adjacent to the sigmoid colon in the left lower quadrant, unchanged. This could be the sequelae of remote diverticulitis or acute on chronic diverticulitis. 4. Multiple gallstones. Dictated by: Junior Joseph M.D. on 01/03/2023 at 8:10 Approved by: Junior Joseph M.D. on 01/03/2023 at 8:33
[2023-01-03] MEDS: levoFLOXacin 750 MG/150 ML PIGGYBACK 100 MG IV (08:17)
== END 2023-01-03 10:13 | disposition home or self-care (01) ==
PROVIDERS: Emergency Medicine; Emergency Provider Emergency Medicine
DX: N39.0 Urinary tract infection, site not specified (principal); R10.32 Left lower quadrant pain; Z96.0 Presence of urogenital implants
CPT/HCPCS: 36415; 74177; 80053; 81003; 81015; 82550; 83605; 84145; 84484; 85025; 87040; 87086; 96361; 96365; 96366; 96375; 99284; J1885; J1956; Q9967

== ENCOUNTER → 2023-01-21 08:36 | Outpatient (CLI) | payer OTHER, SELFPAY | PROVIDERS: Visit Provider Specialist | DX: N39.0 Urinary tract infection, site not specified (principal); E83.59 Other disorders of calcium metabolism; N29 Other disorders of kidney and ureter in diseases classified elsewhere; Z87.440 Personal history of urinary (tract) infections; Z87.442 Personal history of urinary calculi; Z96.0 Presence of urogenital implants | CPT/HCPCS: 81002; 87086; 99215 ==

== ENCOUNTER → 2023-02-04 08:23 | Outpatient (CLI) | payer OTHER, SELFPAY | PROVIDERS: Visit Provider Specialist | DX: E83.59 Other disorders of calcium metabolism (principal); N29 Other disorders of kidney and ureter in diseases classified elsewhere; Z87.440 Personal history of urinary (tract) infections; Z87.442 Personal history of urinary calculi; Z96.0 Presence of urogenital implants | CPT/HCPCS: 52310; 81002; 87086; 99214 ==

== ENCOUNTER → 2023-03-17 11:56 | Outpatient (CLI) | payer OTHER, SELFPAY ==
--- NOTE | 2023-03-17 | DI.RAD.S_ITS ---
PROCEDURE: XR KUB INDICATIONS: CALCULUS OF KIDNEY TECHNIQUE: One view of the abdomen acquired. COMPARISON: [facility], RG, CT ABDOMEN/PELVIS WITHOUT CONTRAST, 01/13/2023, 10:01. [facility], OSVALDO, XR KUB, 01/01/2023, 12:17. FINDINGS: Surgical changes and devices: Previously seen left ureteral stent has been removed. Bowel: Bowel gas pattern is normal. Soft tissues: No suspicious abdominal calcifications. No definite residual renal or ureteral calculus is seen radiographically. Visualized solid organ contours appear normal in size. Bones: No suspicious bony lesions. IMPRESSION: Previously seen left ureteral stent is been removed. No definite residual renal or ureteral calculus. Approved by: Freddie Flowers M.D. on 03/17/2023 at 16:04
[2023-03-17 13:34] LABS: Calcium 10.1 mg/dL (8.4-10.2); Uric Acid 6.7 mg/dL (2.5-6.2)
== END ==
PROVIDERS: Referring Provider Specialist; Visit Provider Specialist
DX: E83.59 Other disorders of calcium metabolism (principal); N29 Other disorders of kidney and ureter in diseases classified elsewhere; N20.0 Calculus of kidney; N39.0 Urinary tract infection, site not specified; Z87.440 Personal history of urinary (tract) infections; Z87.442 Personal history of urinary calculi
CPT/HCPCS: 36415; 74018; 82310; 84550

== ENCOUNTER → 2023-03-25 09:23 | Outpatient (CLI) | payer OTHER, SELFPAY | PROVIDERS: PCP Nurse Practitioner Family; Visit Provider Specialist | DX: N39.0 Urinary tract infection, site not specified (principal); N29 Other disorders of kidney and ureter in diseases classified elsewhere; E83.59 Other disorders of calcium metabolism; Z87.442 Personal history of urinary calculi; Z87.440 Personal history of urinary (tract) infections | CPT/HCPCS: 81002; 87077; 87086; 87147; 99215 ==

== ENCOUNTER → 2023-05-02 11:35 | Outpatient (CLI) | payer OTHER, SELFPAY ==
[2023-05-02 13:46] LABS: Hematocrit 38.5 % (36-46); Hemoglobin 12.6 g/dL (12.0-16.0)
[2023-05-02 15:24] LABS: BUN Creatinine Ratio 22.5 (6-22); Blood Urea Nitrogen 16 mg/dL (7-17); Calcium 9.7 mg/dL (8.4-10.2); Carbon Dioxide 26 mmol/L (22-32); Chloride 106 mmol/L (98-107); Estimated Glomerular Filt Rate > 60 mL/min (>60); Glucose 99 mg/dL (70-100); HEMOLYSIS < 15 (0-50); Potassium 4.3 mmol/L (3.4-5.1); Sodium 141 mmol/L (137-145); Uric Acid 5.6 mg/dL (2.5-6.2)
[2023-05-02 15:36] LABS: Creatinine Urine Random 101.8 mg/dL
[2023-05-02 15:42] LABS: Protein (Total) Urine Random < 5 mg/dL (0-12); Protein Creatinine Ratio Urine 0.04 GRAM/24H
== END ==
PROVIDERS: PCP Nurse Practitioner Family; Referring Provider Specialist; Visit Provider Specialist
DX: N05.9 Unspecified nephritic syndrome with unspecified morphologic changes (principal); D70.9 Neutropenia, unspecified; D63.1 Anemia in chronic kidney disease; R80.9 Proteinuria, unspecified; Z87.442 Personal history of urinary calculi; N39.0 Urinary tract infection, site not specified; N20.0 Calculus of kidney; Z87.440 Personal history of urinary (tract) infections; E83.59 Other disorders of calcium metabolism; N29 Other disorders of kidney and ureter in diseases classified elsewhere
CPT/HCPCS: 36415; 80048; 82570; 84156; 84550; 85014; 85018

== ENCOUNTER → 2023-08-26 08:51 | Outpatient (CLI) | payer OTHER, SELFPAY ==
[2023-08-26 10:23] LABS: BUN Creatinine Ratio 28.6 (6-22); Blood Urea Nitrogen 22 mg/dL (7-17); Calcium 9.8 mg/dL (8.4-10.2); Carbon Dioxide 22 mmol/L (22-32); Chloride 108 mmol/L (98-107); Estimated Glomerular Filt Rate > 60 mL/min (>60); Glucose 96 mg/dL (70-100); HEMOLYSIS < 15 (0-50); Potassium 4.5 mmol/L (3.4-5.1); Sodium 139 mmol/L (137-145)
[2023-08-26 10:54] LABS: Protein (Total) Urine Random 6 mg/dL (0-12); Protein Creatinine Ratio Urine 0.09 GRAM/24H; Sodium Urine Random 128 mmol/L (30-90)
[2023-08-27 16:53] LABS: Vitamin D 25 Hydroxy (D3) 40.4 ng/mL (30.0-100.0)
[2023-08-28 13:52] LABS: Parathyroid Hormone Int 24 pg/mL (15-65)
== END ==
PROVIDERS: PCP Nurse Practitioner Family; Referring Provider Student in an Organized Health Care Education/Training Program; Visit Provider Student in an Organized Health Care Education/Training Program
DX: N05.9 Unspecified nephritic syndrome with unspecified morphologic changes (principal); N25.81 Secondary hyperparathyroidism of renal origin; R80.9 Proteinuria, unspecified; E87.1 Hypo-osmolality and hyponatremia; E55.9 Vitamin D deficiency, unspecified
CPT/HCPCS: 36415; 80048; 82306; 82570; 83970; 84156; 84300

== ENCOUNTER → 2023-09-17 16:42 | Outpatient (CLI) | payer OTHER, SELFPAY ==
--- NOTE | 2023-09-17 16:43 | DI.MRI.S_ITS ---
PROCEDURE: MR KNEE LT WO CON INDICATIONS: PAIN IN LEFT KNEE TECHNIQUE: Noncontrast sagittal PD fast spin echo, STIR, and T2 fast spin echo with fat saturation, sagittal 3-D FLASH with fat saturation; coronal T1 spin echo, STIR, and PD fast spin echo with fat saturation, and axial PD fast spin echo with fat saturation through the knee. COMPARISON: None. FINDINGS: Image quality: Excellent. Anterior cruciate ligament: Postsurgical changes are seen from prior anterior cruciate ligament reconstruction. The femoral tunnel is located at the 10-11 o'clock position in the intercondylar notch with the orifice approximately 10 mm from the intersection of the posterior femoral cortex with Blumensaat's line. The tibial tunnel is located in the anterior to middle third of the central tibial plateau. The anterior cruciate ligament graft is intact. There is no significant arthrofibrosis. Posterior cruciate ligament: Intact. Medial collateral ligament: Intact. Lateral collateral ligament: Intact. Medial meniscus: Intact. Lateral meniscus: Intact. Medial and lateral tendons: The semimembranosus tendon insertions appear intact. Visualized portions of the pes anserinus tendons appear normal. The popliteus tendon is intact. Iliotibial band appears normal. Anterior structures: Postsurgical changes are seen from prior patellar tendon harvest. Distal quadriceps tendon is intact. Mild lateral patellar subluxation. No femoral trochlear dysplasia or ventral trochlear prominence. Mild edema at the superolateral aspect of the infrapatellar fat pad. Bones and cartilage: No bone marrow contusions or fractures. Medial femorotibial cartilage: Focal high-grade cartilage loss at the weight-bearing portion of the medial femorotibial compartment with small marginal osteophytes. Lateral femorotibial cartilage: Mild partial-thickness cartilage irregularity. Small marginal osteophytes. Patellofemoral cartilage: Full-thickness cartilage loss is seen involving the majority of the lateral patellar facet and the adjacent lateral femoral trochlea with subchondral cystic changes and edema as well as mild remodeling of the articular surfaces. Additional high-grade cartilage loss is seen within the anterior compartment with marginal osteophytes. Soft tissues: Small joint effusion. Multiple 7-10 mm intra-articular osteochondral loose bodies are seen within portions of the infrapatellar recess. Fluid and small loose bodies are seen tracking along the popliteus tendon sheath. Trace medial popliteal cyst. The musculature surrounding the knee is normal in bulk. An 8 x 7 x 7 mm ganglion cyst is seen adjacent to the origin of the lateral head of the gastrocnemius muscle. IMPRESSION: 1. Postsurgical changes from anterior cruciate ligament reconstruction with a tunnel positioning as described above. The anterior cruciate ligament graft is intact. 2. Full-thickness cartilage loss involving a large portion of the patellofemoral compartment with subchondral cystic changes, subchondral edema, marginal osteophytes, and remodeling of the articular surfaces. There is resulting patellar tilting and mild lateral patellar subluxation. 3. 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 Mild grade 2 chondromalacia in the lateral compartment with tricompartmental marginal osteophytes. 4. No acute trabecular bone injury. Posterior cruciate ligament and collateral ligaments are intact. No meniscal tear. 5. Small joint effusion with multiple intra-articular loose bodies measuring 7-10 mm. Approved by: Freddie Flowers M.D. on 09/18/2023 at 9:56
== END ==
PROVIDERS: PCP Nurse Practitioner Family; Referring Provider Nurse Practitioner Family; Visit Provider Nurse Practitioner Family
DX: S83.012A Lateral subluxation of left patella, initial encounter (principal); M94.262 Chondromalacia, left knee; M25.462 Effusion, left knee; M23.42 Loose body in knee, left knee; M25.562 Pain in left knee; M67.462 Ganglion, left knee
CPT/HCPCS: 73721

== ENCOUNTER 2023-11-26 13:13 | Day surgery (SDC) | payer OTHER, SELFPAY ==
[2023-11-21 10:32] VITALS: BMI 33.7
[2023-11-26] VITALS (9 sets, daily range): BP systolic 85–134; BP diastolic 54–88; PULSE 68–88; RESP 10–26; TEMP 36.2–36.6; O2SAT 93–99; BMI 33.7
[2023-11-26] MEDS: LACTATED RINGERS 1,000 ML 42 ML IV (13:50)
--- NOTE | 2023-11-26 14:56 | PM.PREOP ---
Pre-operative Note Interval Note History & Physical reviewed/Exam performed by Physician: Yes Changes to H&P: No
[2023-11-26] MEDS: SCOPOLAMINE 1 PATCH TOP (15:09)
[2023-11-26] MEDS: CELECOXIB 200 MG CAPSULE PO (15:10)
--- NOTE | 2023-11-26 15:26 | PM.OP.1 ---
Operative Date/Time/Diagnoses Date of procedure: 11/26/23 Time of procedure: 15:30 Pre-op diagnosis: Loose bodies left knee joint M23.42 Patellofemoral arthritis left knee M17.12 Post-op diagnosis: same Procedure & Clinicians Procedure: 1. Arthroscopic removal loose body left knee CPT code 09154 left 2. Chondroplasty left knee joint CPT code 87061 Same procedure as scheduled: Yes Indications: The patient is a 48-year-old female with a previous medical history including an ACL reconstruction of the left knee this was back in 1994. She has a moderate anterior knee symptoms over the last year and had acute onset of worsening of the pain while performing resisted leg extension exercises in July of 2023. She felt a distinct popping at the lateral aspect of her anterior knee which resulted in excruciating pain and prevented her from weight-bearing. Since then she has had locking episodes both anterolaterally and anteromedially with objects like she can move under the skin consistent with loose bodies. She endorses catching and locking she is tried physical therapy and Tylenol. She was scheduled to have surgery with the [facility] orthopedist however they were unable to schedule her in a timely fashion. The risks and benefits of the procedure have been discussed with the patient and given the opportunity to ask questions. The risks of surgery include but are not limited to infection, malunion, nonunion, persistence of pain, damage to nerves and blood vessels, progressive arthritis, posttraumatic arthritis, DVT, PE, cardiopulmonary complications and . The patient expressed a thorough understanding of the risks and benefits of surgery and has elected to proceed. Consent was signed. Surgeon: Marcella Dietrich Click Yes if Unassisted: Yes Anesthesia Type: General and Local Operative Notes Findings: Suprapatellar pouch--loose bodies-removed with grasper. Portal required extension proximally 1 cm to remove the 12 mm loose body 2 pieces. Patellofemoral compartment--grade 4 cartilage wear patella and trochlea Medial gutter-loose body removed Lateral gutter body balance between lateral and medial gutters and suprapatellar pouch mentioned above and removed through an extended portal Notch intact ACL graft Medial compartment-grade 2 -3 chondromalacia intact meniscus-small marginal spur Lateral compartment grade 2 chondromalacia intact meniscus-small marginal spurs Closure Type: primary Specimen(s): none sent Estimated Blood Loss (mL): 5 Blood products transfused: none Tourniquet time (min): 43 Procedure in detail: Patient was seen in the preoperative area the site of surgery marked informed consent confirmed. This was the left knee. The patient was taken back to the operating room by the anesthesia team positioned supine on operative table. Bony prominences well padded. A well-padded thigh tourniquet was applied. SCD was placed on the contralateral lower extremity. General anesthetic was administered. The left lower extremity was prepped and draped in the standard sterile fashion a formal time-out procedure was performed confirming the patient's side and site of surgery administration of appropriate preoperative antibiotic. All were in agreement. Attention turned to the left knee. Esmarch was used for exsanguination tourniquet raised in a thigh to 250 mm of mercury. Standard anterior lateral portal was established and the camera inserted. Diagnostic arthroscopy was carried out in the usual fashion with the findings given above. Then the medial portal was established with a mark and spread in the skin and under direct visualization. The shaver was used to complete the chondroplasty. A grasper was used to remove the loose bodies. There was a large loose body greater than 12 mm this was grabbed with the grasper with use of the camera and a separate spinal needle for triangulation and holding the fragment. The medial portal was extended horizontally proximally 1 cm to accommodate removal of the fragment. This did break into a small piece on 1st attempt of removal and then was removed in its entirety. Thorough chondroplasty completed of patellofemoral compartment and suprapatellar pouch and extensive interrogation of the gutters for additional loose bodies. Once the procedure was completed the instruments removed from the knee. Portals were closed with 3-0 nylon suture. And local anesthetic was injected for postoperative pain control. Dressing with Xeroform gauze and an [place] wrap was applied. Patient was woken from anesthesia taken to recovery room in good condition. There were no immediate complications for this procedure Complications: none Post-operative Condition: stable Disposition: PACU Plan for aftercare: Weightbear as tolerated. May remove dressing and shower in [address] Band-Aids over the portal sites. Follow up in 2 weeks for suture removal.
[2023-11-26] MEDS: CEFAZOLIN 2 GM/100 ML PREMIX 100 ML IV (15:35)
[2023-11-26] MEDS: ACETAMINOPHEN IV 1,000 MG/100 ML VIAL 400 MG IV (15:45)
--- NOTE | 2023-11-26 15:53 | SUR.OPER ---
Supine on padded OR bed, head on pillow, arms secured on padded arm boards at <90 degrees abduction, legs uncrossed, safety belt at thigh, tape over blanket over lower legs.
[2023-11-26] MEDS: BUPIVACAINE 0.25% (PF) VIAL 30 ML INJ (16:08)
[2023-11-26] MEDS: METOCLOPRAMIDE 10 MG/2 ML INJ IV (17:12)
[2023-11-26] MEDS: ONDANSETRON 4 MG/2 ML INJ IV (17:13)
[2023-11-26] MEDS: TRAMADOL 50 MG TABLET PO (17:13)
== END 2023-11-26 17:58 | disposition home or self-care (01) ==
PROVIDERS: PCP Nurse Practitioner Family; Referring Provider Orthopaedic Surgery Foot and Ankle Surgery; Visit Provider Orthopaedic Surgery Foot and Ankle Surgery
PROC: (CPT 29870; principal; 2023-11-26 14:45)
DX: M17.12 Unilateral primary osteoarthritis, left knee (principal); M23.42 Loose body in knee, left knee
CPT/HCPCS: 29877; J0136; J0690; J1100; J1885; J2250; J2405; J2704; J2765; J3010